=== PATIENT | female | born 1995 | race Caucasian/White ===

== ENCOUNTER 2023-09-23 08:00 | Outpatient (RCR) | payer OTHER, SELFPAY ==
--- NOTE | 2023-09-23 10:05 | BH.NA_ITS ---
Physical Data Vital Signs Pulse Rate: 71 Blood Pressure: 130/85 Height/Weight Height: 1.57 m Weight:: 61.235 kg Weight in Pounds: 135.0 lbs Current Medication Compliance Medication Compliance Do you take your medication as prescribed?: Yes (client has been consistent for the past 3 weeks but has a hx of not) Nutritional History Appetite Nutritional Instructions: Describe your appetite:: Fair Additional nutritional information:: Client states her weight has been as low as 120lbs. Client states she has had some vomiting at times due to anxiety/mental health. Functional Assessment Sleep Pattern Describe any problems with sleeping: Client states she sleeps about 6 hours per night. Sensory/Communication Assess Communication Problems Do you have difficulty understanding what people are saying?: No Medical Problems/History Pain Assessment Do you have acute or chronic pain?: No Surgical History Surgical History Have you had any surgeries? If so, list type and date:: Yes (tonsils, D&C) Substance Abuse Substance Abuse Please describe substance abuse in the last 30 days:: Client states she occasionally uses alcohol socially. Client states she does vape nicotine, lately it has been daily, but she is trying to quit. Client states she occasionally uses marijuana, last about a month ago. Client states she drinks 1 cup of coffee per day and occasionally has pop with caffeine. Mental Status Summary Mental Status Significant Findings/Observations on Appearance and Mood:: Client is alert and oriented x 4. Client is casually groomed with good hygiene. Client is cooperative with assessment. Client makes fair eye contact. Client's voice has normal rate and volume. Client has a somewhat restricted affect. Client makes logical associations and has normal processing, but states her memory is very poor and it makes her a poor historian for recent events. Client denies SI, but does state sometimes she thinks I don't want to wake up tomorrow. Suicide Assessment Suicidal Ideation Are you currently or have you been suicidal in the past?: Yes (passive thoughts of ) Suicidal Intentional Rating Scale (SIRS): Suicidal thoughts (past) Physician Notification Past Psychiatric History MH Treatment Hx Past Psychiatric Medications:: Zoloft Age of first mental health symptoms: Client states she was first on medications for mental health around age 18-21 but has never been consistent with taking her medications. Describe (age, circumstance, etc) any past hospitalizations: None. Current providers for mental health treatment (counselor, psychiatrist, case resource manager, etc.): a psychiatrist in [place] that she is still seeing telehealth Fall Risk Assessment Age Age: Less than 60 Mental Status Mental Status: Willing & able to ask for assistance when needed Physical Status Physical Status: No problems Impairments Impairments: None Elimination Elimination: Continent AND independent Gait or Balance Gait or Balance: Walks independently Hx of Falls History of falls in the past 6 months: No known history Medications/Substances Psychotropics:: Antipsychotics Medications/substances used within the past 24 hours or ordered to administer: 1-2 of the medications/substances listed above Total Score Total Points:: 1 RN Summary of Impressions Impressions Recommendations Impressions: Psychiatric Issues: 1. Bipolar 1 disorder, most recent episode depressed, severe without psychosis (F31.4) 2. Generalized anxiety disorder Level of Care How do the client's current symptoms and functional deficits support need for this level of care?: Client was referred to IOP by her family after recently coming back to [place] from [place] to stay with her parents. Client has been having difficulty with her ADL's, isolating herself, and has been having panic feelings at night. Client states her memory is also very poor right now. Client has a 2 year old daughter that came to [place] with her and client's parents are currently helping her with childcare. Client states she does have thoughts at times I wish I didn't wake up tomorrow but denies suicidal thoughts. Client states she was prescribed Latuda in November of 2022 but has not consistently taken the medication until she came back to [place] a few weeks ago. IOP will promote gains and prevent further decompensation while providing social support and skills training.
--- NOTE | 2023-09-23 10:10 | BH.SGPN.GN ---
Behaviors/Verbalizations/Mental Status: [] Eye contact is poor.. Motor activity is appropriate. Appearance is casual. Speech is Appropriate. Mood is anxious. Affect is congruent. Thoughts are linear and logical. No evidence of psychosis. Client Response/Progress/Benefit: [] Attentive during group discussions. Active participant in experiential activity. Attentive during interactive discussion in which group worked together to define resilience (i.e. continuing to bounce back from hardship; willingness to keep trying) and identify benefits of resilience. Attentive during interactive discussion on if resilience is something we are born with or can learn. Provided appropriate thoughts and feedback. Participated at times during small groups however was quiet and mostly passive as peers identified strategies to build resilience. Benefited from increased awareness of the role of resilience in mental health and ways to build resilience. Will continue in IOP to prevent decompensation, . Narrative Note: []
--- NOTE | 2023-09-23 11:10 | BH.SGPN.GN ---
Behaviors/Verbalizations/Mental Status: []Pt alert and oriented, neatly dressed and groomed. Eye contact good. Motor activity appropriate. Speech within normal limits. Affect congruent, mood anxious and depressed. Thoughts linear, logical, no signs of hallucinations or delusions. Client Response/Progress/Benefit: [] Pt responded well to session AEB completing the resilience worksheet provided. Pt actively participated in the discussion and worked cooperatively with group to identify strategies to enhance each of the components discussed. Pt reports belief they already use resilience traits of making connections and self-awareness. Pt discussed that they could work more on keeping things in perspective and self-care. ?Pt seemed to benefit from discussing strategies for improving personal resilience and identifying resilience traits Pt already possesses. Pt?s first day of IOP tx. Pt reported feeling highly anxious. Will continue IOP tx to prevent decompensation, improve daily functioning, and gain healthy coping skills. ? Narrative Note: []
[2023-09-23 11:32] VITALS: BP 130/85; PULSE 71
--- NOTE | 2023-09-23 12:41 | PCM.BH.PSYEV ---
Psychiatric Evaluation Initial Evaluation Initial Evaluation: History of Present Illness: [] The patient is a 28-year-old female with a history of bipolar 1 disorder and anxiety who was referred to the [facility] behavioral health IOP by the [facility] department and family. The patient states that her symptoms of depression and anxiety worsened in the past year so she moved back to [place] from [place] on September 09, 2023 and is currently living with her father some days and her mother most of the days and always with her 2-year-old daughter. The patient is for the past 6 years to her who is in the and was recently deployed to [place]. They have been having marital issues and she actually from her when her daughter was 4 months old and moved back here and then but then they reconciled and she moved back to [place]. She is currently a [id number] mom since she had her daughter. The patient states that after the of her child daughter she had rapid cycling of her moods from depression to pedro and her family feels she has bipolar disorder. Her father's mother had bipolar disorder and her father sees the same symptoms in her. For primary support she has her mom and dad. Currently she is depressed for the past few months and not able to function well or accomplish her activities of daily living. She is having difficulty taking care of her child to the standard she sets. The patient is not a good historian and hurts states that her memory is poor and says my brain is much. She endorses sadness, hopelessness, worthlessness, apathy, isolation, anhedonia, fluctuation in appetite with weight stable. She is sleeping about 6 hours a night and wakes up during the night. She has low energy, decreased concentration, guilt. She had passive thoughts of 2 weeks ago but denies them since. She denies suicidal ideation, plan for suicide, homicidal ideation, hallucinations or delusions. She has a history maybe a month ago of having an episode of pedro with rapid speech, flight of ideas, increased spending, increased energy and decreased sleep. Most of this history was obtained from her father at the intake and the patient admits to history of pedro but is unclear on when and cannot tell me how often she has these episodes. She is a worrier by nature and has panic attacks the last time being 2 weeks ago. She denies OCD, eating disorder, history of self-harm, trauma or PTSD. Current Psychiatric Medications: [] Lamictal 50 mg p.o. daily (increased recently); Latuda 60 mg p.o. daily with food which she has been on since December 2022 but was not taking it at all consistently or much until the past 3 weeks when her parents have helped her take her meds regularly.; BuSpar 15 mg twice daily; hydroxyzine of unknown dose; trazodone 50 mg p.o. nightly. Past Psychiatric History: [] No psych admits ever. No suicide attempts ever. She has a psychiatrist in [place] for the past 5 months. She was first depressed and anxious in high school. She first took meds for psychiatric reasons at age 21 but does not feel like they helped. Then she took meds again possibly in November 2022 but really was mostly noncompliant with them till the last 3 weeks. She first had counseling off-and-on only in the past year. Substance Use History: [] Vapes nicotine only. Last use marijuana by vaping 1 month ago and was doing it daily for 2 to 3 weeks 1 month ago but stopped doing it. No alcohol use and no drugs and no rehab ever. Allergies: [] No known allergies Medications: [] Psych meds as dictated above and otherwise negative. Past Medical History: [] Denies any medical illnesses. She had a tonsillectomy in the past and a D&C for miscarriage in 2019. She is a 2 para 1 AB 1 female with a 2-year-old daughter and a history of 1 miscarriage. Periods have been irregular since she had her 2-year-old daughter but the last one was normal. She is not on any control. Family Psychiatric History: [] Mother is 54 years old and father is 59 years old. Paternal grandmother had bipolar disorder and was hospitalized for it at times. Father has anxiety. No suicides in the family and no substance issues in the family. Personal/Social History: [] She was born and raised in [facility] and describes her childhood as good. Parents when the patient was 14 years old and she saw her mom mostly inside her dad once or twice a week. Parents are both loving and she denies any verbal, physical or sexual abuse. She has 1 sister 2 years younger and they are close. School was okay for her but she was not a good student really. She was not in special classes. She graduated high school and got a BA in business administration in college. 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 is 25 years old and is in the . They are having some marital issues and when her daughter was 4 months old. She denies any abuse in the marriage. She is currently a mtmg-[id number] mother. And is living now with her mom most days of the week and with her father 2 days a week and always with her 2-year-old daughter since she came here from [place]. Legal History: [] No arrests. 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 No DUIs. Review of Systems: [] Review of systems is negative except as noted in present illness. Vital Signs: [] Vital signs reviewed in the nurses notes and records and updated and the patient is deemed medically able to participate in the IOP. Mental Status Examination: [] The patient is a 28-year-old female who appears normal for stated age and is casually dressed and groomed with good hygiene. She is ambulatory with a normal gait and has no psychomotor agitation or retardation. Eye contact is good and speech is normal rate and rhythm and fluent with no pressure. Mood is depressed and anxious. Affect is constricted. Thought process is goal-directed and organized. Thought content: There is evidence of passive thoughts of recently and evidence of difficulty recalling her history. There is no evidence of current suicidal ideation, plan for suicide, homicidal ideation, hallucinations, delusions or symptoms of pedro. Reality testing is intact. Intelligence is average or above average. Judgment is intact. Insight is limited but some present. Impulsivity is high. Diagnoses: [] 1. Bipolar 1 disorder, most recent episode depressed, severe without psychosis (F31.4) 2. Generalized anxiety disorder 3. Primary support issues Plan: [] The patient will start the IOP at [facility] in behavioral health as the structure, support, education and group therapy will hopefully prevent worsening of the patient's symptoms. She felt safe during the interview and if it anytime she does not feel safe she will let us know or go to the emergency room. The risk, options, possible complications and side effects of the medications were discussed with the patient and she understands and accepts these. No medication changes were made today as the patient only recently 3 weeks ago started taking her medications at all consistently. She will continue to follow-up with outpatient providers and I will see the patient in follow-up in 2 weeks.
--- NOTE | 2023-09-23 12:52 | BH.DR.ITP ---
Initial Treatment Plan Patient Information Visit Information: ADMISSION DATE: EXPECTED LOS: 4-6 weeks Problems/Symptoms Problem #1:: Mood instability Symptom:: Depression, history of pedro, sadness, anhedonia, hopelessness, worthlessness, low energy, decreased concentration, guilt, passive thoughts of recently Problem #2:: Anxiety Symptom:: Worry, rumination, panic attacks
--- NOTE | 2023-09-24 09:00 | BH.SGPN.GN ---
Behaviors/Verbalizations/Mental Status: [Patient was alert and oriented, appropriately dressed and groomed. Eye contact was poor, motor activity normal, unable to gauge speech. Affect congruent, mood content. Thoughts linear, logical, no signs of hallucinations or delusions. Reviewed Patients symptom tracker and the patient reports depressed mood, anxiety/panic attacks, aggravation/irritation/anger, self-harm urges, and risk/thoughts of suicide within patients normal base level.] Client Response/Progress/Benefit: [ Patient declined wanting to participate in group. Patient was respectful and sat quietly and seemingly listened to the other patients wins and stressors. Therapist will check in with the patient to gauge the patients thoughts and mood. If patient does not engage in discussion in the future, this could affect progress in the program. Patient will continue with IOP treatment to help develop healthy skills, promote mood stability, and improve distress tolerance. ] Narrative Note: []
--- NOTE | 2023-09-24 10:05 | BH.SGPN.GN ---
Behaviors/Verbalizations/Mental Status: [Patient was alert and oriented, casually dressed and groomed. Eye contact was good, motor activity normal, speech within normal limits. Affect congruent, mood anxious. Thoughts linear, logical, no signs of hallucinations or delusions. ] Client Response/Progress/Benefit: [Patient did not engage in group but seemingly used active listening and watched the group. Patient did not give a response or input in this group. If patient continues not to participate, this could affect her progress. Patient seemingly benefited from increasing awareness of different perspectives and how they can affect mental health. Patient will continue IOP treatment to improve daily functioning, emotion management, and prevent decompensation.] Narrative Note: []
--- NOTE | 2023-09-24 11:15 | BH.SGPN.GN ---
Behaviors/Verbalizations/Mental Status: []Pt alert and oriented, neatly dressed and groomed. Eye contact good. Motor activity appropriate. Speech within normal limits. Affect constricted, mood fearful. Thoughts linear, logical, no signs of hallucinations or delusions. Client Response/Progress/Benefit: []Pt was attentive and contributed to small group discussion. Pt completed strengths exploration worksheet, identifying kindness, love, empathy, and honesty as personal strengths. Pt able to acknowledge how these strengths are helping pt and can continue to help pt in mental health journey. Pt worked with group to identify strategies that can help increase utilization of personal strengths and how to challenge one?s perspective in general. Pt identified wanting to work on coming to IOP consistently to help challenge perspective. Benefited from identifying personal strengths and strategies for enhancing use of identified strengths. Pt will continue IOP tx to prevent decompensation, improve daily functioning, and gain healthy coping skills. Narrative Note: []
--- NOTE | 2023-09-25 10:15 | BH.SGPN.GN ---
Behaviors/Verbalizations/Mental Status: []Pt alert and oriented, neatly dressed and groomed. Eye contact good. Motor activity appropriate. Speech within normal limits. Affect constricted, mood anxious. Thoughts linear, logical, no signs of hallucinations or delusions. Client Response/Progress/Benefit: [] Pt was a passive participant during group discussion. Attentive during psychoeducation on coping skills, why people use unhealthy coping skills, and how to replace unhealthy coping skills. Group came up with list of negative coping skills including isolating, self-harm, substances, and overworking. Group discussed the effects of how negative coping skills can impact mental health and reinforce negative thinking patterns. Participated in the group activity and did well to connect with peers and give ideas. Pt is highly anxious outside of hands-on activities and does not talk. Benefited from increased understanding of unhealthy coping skills and the need for developing healthy internal and external coping skills. Pt will continue IOP tx to prevent decompensation, improve daily functioning, and gain healthy coping skills. ? Narrative Note: []
--- NOTE | 2023-09-25 11:15 | BH.SGPN.GN ---
Behaviors/Verbalizations/Mental Status: []Pt alert and oriented, casually dressed and groomed. Eye contact good. Motor activity appropriate. Speech within normal limits. Affect constricted, mood anxious. Thoughts linear, logical, no signs of hallucinations or delusions Client Response/Progress/Benefit: [] Pt responded well to session, taking notes and listening to peers. Group discussed the different categories of coping skills which included distraction, emotional release, grounding, self-love, and thought challenging.? Pt participated in creating a coping skills ?menu? from the five categories of coping skills. Pt's coping skill menu included: reading, taking a hot bath, listening to calming music, eating something she enjoys, and reminding herself that thoughts are thoughts not facts. Appeared to benefit from increasing repertoire of healthy coping skills. Will continue IOP tx to prevent decompensation, reduce avoidance and isolation, and improve daily functioning. ? Narrative Note: []
--- NOTE | 2023-09-25 14:10 | BH.MDN_ITS ---
Multi-Disciplinary Note Note 30-min Individual: Time Started:: 09:20 Date: 09/25/23 Purpose of session/treatment goals addressed:: To gather information on pt's current symptoms, stressors, and psychosocial stressors. Another goal was to build rapport and provide emotional support. Eye Contact:: Good Motor Activity:: Restless Appearance:: Neat Speech:: Rapid Mood:: Anxious Affect:: Constricted Thoughts:: Racing Staff Interventions:: mindfulness skills, rapport building, strengths pe rspective and goal setting Client Response:: Pt responded well to session, open to meeting with therapist. Pt stated the program is not going well right now because pt is so overwhelmed and anxious. Pt stated she thinks the program could be helpful eventually, but pt is worried that she is too scattered to get anything out of group. Pt shared the entire time I'm in there I think please don't call on me and it's all I can think about. Pt shared she is highly anxious to the point of panic. Pt was offered several accommodations including having someone take notes for pt and being seen during process group which causes pt the most anxiety. Pt reported that she knows she needs help, but pt does not think this is the right level of care for her. Pt shared her parents are highly encouraging pt to complete IOP and pt feels guilty that they are taking time off work to help her. Pt tried outpatient counseling in the past and shared she has not stayed in it long enough to find benefit. Pt receptive to needing some level of exposure if pt desires a reduction in anxiety symptoms. Pt was told that she will not be called on during group sessions to help pt ease into the structure of IOP and reduce anxiety. Pt willing to give IOP one more week to see if her anxiety can lessen enough so pt can focus in group and benefit from the material. Pt respo nded well to gentle thought challenging by therapist as well as emotional support. Risks/Concerns:: Pt denies any SI or HI. Pt does report that being in group sessions is making her anxiety way worse and ot is not sure if she will be able to complete the full 6 weeks. Progress Toward Goals/Plan:: Pt's first week of IOP tx and pt reports feeling highly anxious. Pt willing to try another week of IOP tx and then decide if the program is right for her. Pt reports that being in group significantly increases her anxiety and pt feels unable to share in group because of this. Pt endorses scattered thoughts, increased hear rate, ruminations, panic, racing thoughts, feeling on edge, and poor appetite. Pt will talk with her parents about how she feels in IOP and pt will attend two days next week. Time Stopped:: 09:48
--- NOTE | 2023-09-25 14:10 | BH.COMM ---
Communication Note Communication with Client Communication Note: Met with pt to complete initial paperwork and administer the CSSR-S screening and risk assessment. Pt is low risk per the CSSR-S screening and risk assessment. No history of suicide attempts or self-harm. Pt reports ability to maintain safety today. Discussed case with Dr. Lara and pt will be admitted to [facility] tx with a diagnosis of bipolar 1 disorder, most recent episode depressed, severe without psychosis (F31.4)
--- NOTE | 2023-09-30 14:24 | BH.DS ---
Discharge Summary Demographics Date of Admission:: 09/23/23 Discharge Date: 09/30/23 Presenting Problems at Admission:: Pt is a 28 year-old female with a history of bipolar I disorder and anxiety who was referred to [facility] due to decompensation of depressive symptoms over the past several months. Pt's symptoms have been impacting pt's ability to complete ADLs and resulted in pt moving back to [place] to be with her parents. Pt experiencing cognitive issues due to severe depression and anxiety. Pt struggling with daily hygiene, taking care of herself and her daughter, and isolation. Pt's symptoms are impacting her overall functioning. Discharge Diagnoses:: Bipolar 1 disorder, most recent episode depressed, severe without psychosis (F31.4); Generalized anxiety disorder Reason for Discharge:: Pt voluntarily discharged from [facility] as pt felt it was not the right level of care for her. Pt has an outpatient therapist and psychiatrist she will follow up with via telehealth. Treatment Progress During Treatment & Response: No progress to document as pt attended group for three days. Issues Still to be Addressed:: Mood instability, depression, difficulty functioning, severe anxiety, avoidance, difficulty concentrating, memory issues, racing thoughts, and martial issues. Discharge Recommendations/Instructions:: Pt was encouraged to try in-person outpatient therapy as pt struggles with severe anxiety and avoidance. Pt will continue with her telehealth providers for now. Discharge Handout
== END 2023-10-01 09:40 | disposition home or self-care (01) ==
LOC: BHIOP 08:00
PROVIDERS: Referring Provider Psychiatry & Neurology Psychiatry; Visit Provider Psychiatry & Neurology Psychiatry
DX: F31.4 Bipolar disorder, current episode depressed, severe, without psychotic features (principal); F41.1 Generalized anxiety disorder
CPT/HCPCS: S9480; 90832; 90853

== ENCOUNTER 2024-01-18 08:00 | Outpatient (RCR) | payer OTHER, SELFPAY ==
--- NOTE | 2024-01-18 11:45 | BH.MDN ---
Multi-Disciplinary Note Note 60-min Individual: Time Started:: 08:50 Date: 01/18/24 Purpose of session/treatment goals addressed:: To gather information on pt's current symptoms, stressors, and psychosocial stressors since last admission. Another goal was to build rapport and provide emotional support. Eye Contact:: Good Motor Activity:: Appropriate Appearance:: Casual Speech:: Appropriate Mood:: Anxious and Depressed Affect:: Congruent Thoughts:: Linear, Logical and No evidence of hallucinations/delusions noted Staff Interventions:: motivational interviewing, psychoeducation on: (maintenance cycles, cognitive triangle), rapport building, strengths perspective, treatment planning and goal setting Client Response:: Pt responded well to session, open to meeting with therapist. Pt stated she feels very nervous about the program and is not confident she is going to benefit from group therapy as she believes ?my symptoms are too severe. I?m too intense?. Reports that feeling overwhelmed and not knowing what to expect resulted in pt not returning to the program after beginning it last September. Therapist provided supportive feedback and discussed the benefits of the shared environment in normalizing pt?s current symptoms and stressors. Pt appeared to connect with this and discussed a desire to give group therapy another try as she does not want to continue to feel the ways she has been. Reviewed adjustments that could be made to ease pt into the group setting, such as not calling on her in groups, having someone else take notes, and being able to step out and take a break as needed until feeling more comfortable. Shared that since her last admission, she has struggled with increasing intrusive thoughts that she will accidentally harm her 2-year-old daughter by not paying enough attention while watching her or missing something and has relied primarily on her parents for caregiving or aiding her in completing caregiving responsibilities the last few weeks. Additionally described intrusive thoughts that she will crash, get into an accident, or hit someone if leaving the house, resulting in pt primarily remaining isolated at home. Reports feeling lost and unsure of who she is since her daughter was born, explaining that she has no idea what she enjoys or would be interested in. Explained difficulties completing basic self-care activities due to lack of motivation and energy, as well as feelings of hopelessness and apathy. Pt disclosed using marijuana to cope in the past but has refrained from doing so since moving back in with her parents. Noted times in which she used excess spending to cope and indicated that in August she had spent upwards of $12,000 on miscellaneous things. Reports her spending as well as pt?s mental health sx have put a strain on her marriage and relationships with her parents. Fears she is going to ruin her relationship with her daughter if she does not improve her mental health while her daughter is still young. Pt noted struggling with limited consistency and significant negative self-talk, especially since returning to [place]. Respective of beginning to incorporate some structure by starting a consistent bedtime. Additional goal to identify 2-3 small accomplishments each day. Risks/Concerns:: Pt denies any SI or HI, plan, or intent. Pt does report ambivalence to living but denies this is suicidal in nature. Pt parents and daughter are protective factors. Progress Toward Goals/Plan:: Pt's first day of IOP tx and pt reports feeling highly anxious. Pt willing to meet with this therapist today and will begin groups later this week as a passive participant and will gradually work on increasing engagement. Pt endorses scattered thoughts, increased intrusive thinking, ruminations, panic, racing thoughts, feeling numb, low motivation, poor hygiene, poor sleep, guilt, apathy, disconnection from others, poor memory, avoidance, and poor appetite. Pt will continue in IOP treatment to improve confidence, promote mood stability, and improve ability to function. Time Stopped:: 09:52
--- NOTE | 2024-01-18 11:47 | BH.PSA_ITS ---
Source of Information Presenting Problems/Circumstances Problems, Referral Source, Mental Status, Client: The patient is a 28-year-old female with history of bipolar 1 disorder and severe anxiety who started the IOP program at [facility] September 23, 2023 but was overwhelmed and discontinued after 2 days. Patient is referred by her parents following an ER visit on 01/11/24 for thoughts of wanting ?to be ?. Pt reports worsening symptoms of anxiety and depression over the last year impac ting her functioning and ability to care give for her daughter who is 2 years old. Psychiatric Presentation Psych Issues & Need for Admission Psychiatric Issues:: panic, anxiety, depression, fleeting SI, codependence Past Psychiatric History MH Treatment Hx Treatment History: Counseling off-and-on for the past year with her counselor in [place]. This has been limited in effectiveness First hospitalization:: No psych admits ever Most recent hospitalization:: denies Medication Trials:: Yes (several with limited effectiveness due to medication noncompliance) ECT Therapy:: No Age of first mental health symptoms: pt reports struggling with mild anxiety much of her life but did not experience depression and anxiety to this extent until age 21. Current providers for mental health treatment (counselor, psychiatrist, case picker, etc.): Dr. Breen psychiatrist, no current outpatient counselor since leaving [place] Development & Family of Origin Childhood Significant Childhood Events: Parents when the patient was 14 years old and had shared custody. Denies any other significant events growing up Family Who currently lives in your home?: Currently staying between parent's homes with her 2 year old daughter as her is [place] Describe family composition:: Pt is the eldest of 2 children with a sister 2 years younger. Her parents have been 14 years. Pt is since 2019 and this is a complicated relationship. They have a 2 year old daughter together. Family History Family Hx of Psychiatric or AOD Problems: Mother is 54 years old and father is 59 years old. Paternal grandmother had bipolar disorder and was hospitalized for it at times. Father has anxiety. No suicides in the family and no substance issues in the family. Ethnicity Culture Do you identify yourself with any particular cultural, ethnic background, or community?: No Sexuality Sexual Orientation: Heterosexual Spirituality Sabianist Do you currently identify with any organized buddhist?: None Beliefs Is there a particular form of support from this community you can use for your recovery?: No Mental Status Memory Recent Memory: Fair Remote Memory: Fair Concentration Concentration: Poor Eye Contact Eye Contact: Stares Speech Speech: Slow and Soft Thought Process Thought Process: Logical and Blocking Insight: Fair Judgment: Fair Orientation Orientation: Time, Person, Place and Situation Appearance Appearance: Appropriate Mood Mood: Anxious and Depressed Affect Affect: Blunted Suicide Assessment Suicidal Ideation Have you ever felt like hurting yourself?: No Please explain:: Does report not wanting to be alive but denies suicidal ideation Were you using ETOH/drugs at the time?: No Physician Notification Violent Behavior/Abuse History Homicidal Ideation Do you have any homicidal thoughts? If so, explain:: No Is there a known potential victim? If yes, who:: No Abuse Have you ever been abused?: No Life Events Are there any other significant life events?: (traumatic miscarriage in 2019 ) Describe significant life events: pt moved to [place] when her joined [employer], pt does not want to live there. Safety Do you ever feel threatened in your home? If yes, describe:: No Adult Social History Age 18 to Present Describe your current support system:: Parents, outpatient psychiatrist, younger sister Substance Use Substance Substance Use Type: Marijuana (last used one month ago), Tobacco (Vapes nicotine only) and Caffeine IV Substance Use Do you have a history of IV use?: denies Leisure/Social Activities Interests What do you enjoy or might be interested in learning about?: Pt is unsure. 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 If yes, describe:: No Court Orders Have you had any past court orders for psychiatric treatment?: No Do you have a present court order for psychiatric treatment?: No Problem Checklist Current Problem Areas Problem List: Depressed mood/sad, Anxiety, Mood swings/hyperactivity and Sleep problems Discharge Planning Needs Anticipated Follow-Up Private Therapist/Psychiatrist:: Dr. Breen Family and Caregiver Contacts:: Mother and father Release of Information Signed:: Yes Car Lubricator's Assessment Client's Needs What are the client's feelings about the program?: Uncertain as pt has extreme anxiety impacting her ability to take in information What are the client's goals?: Reduce anxiety to be able to function at baseline What are the client's strengths?: resilient, intelligent, receptive of support Diagnoses Diagnoses Diagnosis #1:: Bipolar 1 disorder, most recent episode depressed, severe without psychosis Diagnosis #2:: Generalized Anxiety Disorder Interpretive Summary Interpretive Summary Interpretive Summary: The patient is a 28-year-old female with history of bipolar 1 disorder and severe anxiety who started the IOP program at [facility] September 23, 2023 but was overwhelmed and discontinued after 2 days. Patient is referred by her parents following an ER visit on 01/11/24 for thoughts of wanting ?to be ?. Pt reports worsening symptoms of anxiety and depression over the last year impacting her functioning and ability to care give for her daughter who is 2 years old. Pt is living between parent?s homes while her is deployed. Pt reports she cannot be alone due to severe anxiety and intrusive thoughts she will accidently miss something and her daughter will get hurt. She reports extreme worry about her marriage which is struggling and the possibility that should her could want her to go back to [place] where he is stationed and they have a home together. Pt endorses sadness, hopelessness, worthlessness, apathy, isolation, passive thoughts of noting I do not want to be alive but I am too afraid to do it . She denies any plan for suicide and denies suicidal ideation, homicidal ideation, hallucinations or delusions. Hx of bipolar disorder and pedro once in a while which and involves increased energy and grandiose mood along with impulsivity and increased spending of money. Last was about a month ago. She is unclear how often she has these episodes. She is a worrier by nature and has panic attacks on occasion. She denies OCD, eating disorder, history of self-harm, trauma or PTSD. She does have a history of medication noncompliance. Her sx are impacting social, occupational, financial, and caregiving responsibilities. Treatment Plan Recommendations Recommendations Guidelines Recommendations:: The patient will start the IOP at [facility] as the structure, support, education and group therapy will hopefully prevent worsening of the patient's symptoms.
--- NOTE | 2024-01-18 11:47 | BH.MTP_ITS ---
Master Treatment Plan Patient Information Program Physician:: Dr. Agnes Mahmood Primary Therapist:: SHANNAN Garnica Psychiatric Diagnoses Psychiatric Diagnoses:: 1. Bipolar 1 disorder, most recent episode depressed, severe without psychosis (F31.4) 2. Generalized anxiety disorder Diagnosis Code(s):: F31.4 Estimated LOS Estimated LOS (in weeks):: 6 Problem/Goal #1 Problem/Goal #1 Stated Goal:: Client will reduce overall frequency, intensity, and duration of anxiety to improve functioning. Description of Barriers: uncertainty of treatment/being in group setting, severe anxiety impeding ability to concentrate and retain information, anxiety driving which could impede consistent attendance, hx of medication and tx noncompliance Functional Impact: The patient is a 28-year-old female with history of bipolar 1 disorder and severe anxiety who started the IOP program at [facility] September 23, 2023 but was overwhelmed and discontinued after 2 days. Patient is referred by her parents following an ER visit on for thoughts of wanting ?to be ?. Pt reports worsening symptoms of anxiety and depression over the last year impacting her functioning and ability to care give for her daughter who is 2 years old. Pt is living between parent?s homes while her is deployed. Pt reports she cannot be alone due to severe anxiety and intrusive thoughts she will accidently miss something and her daughter will get hurt. She reports extreme worry about her marriage which is struggling and the possibility that should her could want her to go back to [place] where he is stationed and they have a home together. Pt endorses sadness, hopelessness, worthlessness, apathy, isolation, passive thoughts of noting I do not want to be alive but I am too afraid to do it . She denies any plan for suicide and denies suicidal ideation, homicidal ideation, hallucinations or delusions. Hx of bipolar disorder and pedro once in a while which and involves increased energy and grandiose mood along with impulsivity and increased spending of money. Last was about a month ago. She is unclear how often she has these episodes. She is a worrier by nature and has panic attacks on occasion. She denies OCD, eating disorder, history of self-harm, trauma or PTSD. She does have a history of medication noncompliance. Her sx are impacting social, occupational, financial, and caregiving responsibilities. Goal Relevant Strengths/Supports: resilient, strong support system, desire to improve mental health sx Objectives Objective #1: Stated Objective: Pt will identify 2-3 anxiety triggers and 2 coping skills to use when feeling anxious to manage anxiety as shown by reducing DSM-5 scores for anxiety Interventions: Therapist will provide education on anxiety, avoidance behaviors, and maintenance cycles. Therapist will help pt explore personal symptoms and warning signs of anxiety. Therapist will teach pt coping skills to improve emotional regulation, mindfulness, and distress tolerance to help pt cope with anxiety in the moment. Discharge Criteria: Pt will have accomplished this goal when she can identify at least 2 triggers and report using 2 coping skills to manage anxiety. Additionally, pt will have accomplished this goal AEB reduction of DSM-5 scores for anxiety. Target Date: 02/29/24 Review Date: 02/08/24 Objective #2: Stated Objective: Client will reduce avoidance behaviors that reinforce anxiety by setting 1-2 small exposure goals a week to increase socialization, increase mastery, and reduce anxiety over time. Interventions: Therapist will help client create a fear-ladder that will act as a guide in confronting anxiety-producing situations. The fear-ladder will go from least anxiety-producing to most anxiety-producing so client can build confidence. Therapist will help client set SMART goals and challenge barriers. Discharge Criteria: Client will be able to use calming skills to successfully complete at least 2 exposure goals reducing anxiety. Target Date: 02/29/24 Review Date: 02/08/24 Problem/Goal #2 Problem/Goal #2 Stated Goal:: Pt will increase mood stability by reducing hopelessness, passive suicidal ideation, and negative thinking patterns. Description of Barriers: uncertainty of treatment/being in group setting, severe anxiety impeding ability to concentrate and retain information, anxiety driving which could impede consistent attendance, hx of medication and tx noncompliance Functional Impact: The patient is a 28-year-old female with history of bipolar 1 disorder and severe anxiety who started the IOP program at [facility] September 23, 2023 but was overwhelmed and discontinued after 2 days. Patient is referred by her parents following an ER visit on 01/11/24 for thoughts of wanting ?to be ?. Pt reports worsening symptoms of anxiety and depression over the last year impacting her functioning and ability to care give for her daughter who is 2 years old. Pt is living between parent?s homes while her is deployed. Pt reports she cannot be alone due to severe anxiety and intrusive thoughts she will accidently miss something and her daughter will get hurt. She reports extreme worry about her marriage which is struggling and the possibility that should her could want her to go back to [place] where he is stationed and they have a home together. Pt endorses sadness, hopelessness, worthlessness, apathy, isolation, passive thoughts of noting I do not want to be alive but I am too afraid to do it . She denies any plan for suicide and denies suicidal ideation, homicidal ideation, hallucinations or delusions. Hx of bipolar disorder and pedro once in a while which and involves increased energy and grandiose mood along with impulsivity and increased spending of money. Last was about a month ago. She is unclear how often she has these episodes. She is a worrier by nature and has panic attacks on occasion. She denies OCD, eating disorder, history of self-harm, trauma or PTSD. She does have a history of medication noncompliance. Her sx are impacting social, occupational, financial, and caregiving responsibilities. Goal Relevant Strengths/Supports: resilient, strong support system, desire to improve mental health sx Objectives Objective #1: Stated Objective: Pt will learn and utilize 2-3 healthy coping strategies to better manage depressive symptoms and reduce suicidal ideations as shown by a decrease of DMS-5 symptoms for depression. Interventions: Through group and individual sessions, therapist will help pt identify triggers and warning signs of depression including emotional, physical, and behavioral changes. Therapist will teach pt various coping skills to manage symptoms and give pt tangible resources to use to regulate emotions. Therapist will use cognitive restructuring techniques and help pt gain awareness of negative thoughts that reinforce guilt and depression. Therapist will provide psychoeducation on maintenance cycles and help pt learn ways to break unhealthy maintenance cycles. Therapist will help pt incorporate behavioral activation and assist pt in setting SMART goals. Discharge Criteria: Pt will have met this goal when can report learning and using at least 2 coping skills to manage depressive symptoms and reduce isolation. Additionally, pt will have met this goal when pt's DSM-5 scores for depression decrease Target Date: 02/29/24 Review Date: 02/08/24 Objective #2: Stated Objective: Pt will identify at least 2-3 negative self-talk messages used to reinforce negative core beliefs, worthlessness, and isolation and replace thoughts with balanced, realistic messages. Interventions: Therapist will help pt identify distorted, negative beliefs about self and replace with more realistic, affirmative messages. Therapist will use CBT and DBT to help pt increase insight to the connection between thoughts, emotions, and behaviors. Therapist will encourage pt to practice thought challenging. Discharge Criteria: Pt will have achieved this goal when can verbalize at least 2 cognitive distortions and effectively replace those thoughts with affirmative messages. Target Date: 02/29/24 Review Date: 02/08/24
--- NOTE | 2024-01-20 08:45 | BH.NA ---
Physical Data Vital Signs Pulse Rate: 81 Blood Pressure: 128/88 Height/Weight Height: 1.57 m Weight:: 61.235 kg Weight in Pounds: 135.0 lbs Current Medication Compliance Medication Compliance Do you take your medication as prescribed?: Yes Nutritional History Appetite Nutritional Instructions: Describe your appetite:: Poor Additional nutritional information:: Client states she does not have an appetite, and is not even drinking very many fluids- client states her mom has to force her to drink. Functional Assessment Sleep Pattern Describe any problems with sleeping: Client states she is sleeping about 4-6 hours per night. Sensory/Communication Assess Communication Problems Do you have difficulty understanding what people are saying?: No Medical Problems/History Pain Assessment Do you have acute or chronic pain?: No Surgical History Surgical History Have you had any surgeries? If so, list type and date:: Yes (tonsillectomy, D&C) Substance Abuse Substance Abuse Please describe substance abuse in the last 30 days:: Client denies alcohol use. Client vapes nicotine daily. Client states she occasionally uses marijuana, and last used a couple of weeks ago. Client states she drinks 1-3 caffeinated beverages per day (coffee, tea, pop). Mental Status Summary Mental Status Significant Findings/Observations on Appearance and Mood:: Client is alert and oriented x 4. Client is casually groomed. Client is very quiet, but cooperative with assessment. Client makes fair eye contact. Client's voice is soft with normal rate. Client appears depressed, with a flat affect. Client makes logical associations, but answers questions very vaguely. Client denies delusions/hallucinations. Client reports some passive SI, denies plan/intent. Suicide Assessment Suicidal Ideation Are you currently or have you been suicidal in the past?: Yes Suicidal Intentional Rating Scale (SIRS): Suicidal thoughts (past) (passive thoughts of , no plan/intent) Physician Notification Past Psychiatric History MH Treatment Hx Past Psychiatric Medications:: past- Lamictal, Zoloft, Buspar, hydroxyzine Age of first mental health symptoms: Client was first depressed in high school, and took medications for mental health around age 21. Describe (age, circumstance, etc) any past hospitalizations: None. Current providers for mental health treatment (counselor, psychiatrist, social work case manager, etc.): a virtual therapist, Dr. Fuentes in [place] for psychiatry Fall Risk Assessment Age Age: Less than 60 Mental Status Mental Status: Willing & able to ask for assistance when needed Physical Status Physical Status: No problems Impairments Impairments: None Elimination Elimination: Continent AND independent Gait or Balance Gait or Balance: Walks independently Hx of Falls History of falls in the past 6 months: No known history Medications/Substances Psychotropics:: Antidepressants and Antipsychotics Medications/substances used within the past 24 hours or ordered to administer: 1-2 of the medications/substances listed above Total Score Total Points:: 1 RN Summary of Impressions Impressions Recommendations Impressions: Psychiatric Issues: 1. Bipolar 1 disorder, most recent episode depressed, severe without psychosis (F31.4) 2. Generalized anxiety disorder Level of Care How do the client's current symptoms and functional deficits support need for this level of care?: Client was in IOP for a couple of days in September 2023, and has returned at this time after an ER visit on 01/11/24 for decreased functioning. Client is currently staying with her parents and her 2 year old child, and client is very dependent on parents due to her mental health (follows her mom around the house, per client her mom has to force her to drink fluids, decrease in ADL's with her mom helping her take care of her child). Client had been living in [place] until August 2023 when she came to [place] to stay with her parents. Client has had some cycling moods since then, some pedro with excessive spending and then depression with passive thoughts of . IOP will promote gains and prevent further decompensation while providing social support and skills training.
[2024-01-20 09:31] VITALS: BP 128/88; PULSE 81
--- NOTE | 2024-01-20 13:05 | BH.PSY.EVA_ITS ---
Psychiatric Evaluation Initial Evaluation Initial Evaluation: History of Present Illness: [] The patient is a 28-year-old female with history of bipolar 1 disorder and severe anxiety who started the IOP program at [facility] September 23, 2023 but was overwhelmed and unable to tolerate it was only here for 2 days. Patient is referred back by her parents now due to worsening symptoms of anxiety and depression. Her parents brought her to the emergency room on January 11, 2024 because she wanted to be and was unable to be alone and followed her mother around the house. The parents stated that she cannot be left alone. She has extreme worry about her marriage and the possibility that should her could want her to go back to [place]. She is afraid to be alone with her daughter because she feels she will be unable to watch her close enough due to her depression symptoms. The patient has been was for 5 years until October 2022 when her and her who is in the . They then remarried in March 2023. The patient states that her biggest stress is I do not want to go back to [place] . Patient is a [id number] mom and is currently living with her parents. The patient states that after the of her daughter she had rapid cycling of her mood from depression to pedro and her paternal grandmother has bipolar disorder in her father and other others feel she also has bipolar disorder. She has been depressed, sadness, hopelessness, worthlessness, apathy, isolation, passive thoughts of . She states I do not want to be alive but I am too afraid to do it . She denies any plan for suicide and denies suicidal ideation, homicidal ideation, hallucinations or delusions. She feels that she gets pedro once in a while which and involves increased energy and grandiose mood along with impulsivity and increased spending of money and she is at times spent thousands of dollars. Last time this happened was about a month ago. She is unclear how often she has these episodes. She is a worrier by nature and has panic attacks on occasion. She denies OCD, eating disorder, history of self- harm, trauma or PTSD. She does have a history of medication noncompliance. Her is in the and was stationed abroad but is coming home soon and he says that the patient is lazy and the does not believe in any mental health issues so was not supportive of the patient. Current Psychiatric Medications: [] Latuda 60 mg p.o. daily with food; Trintellix 10 mg p.o. daily (added 1 week ago); trazodone 50 mg p.o. nightly Past Psychiatric History: [] No psych admits ever. No suicide attempts ever. She has a new psychiatrist that she saw last week for the first time. She was first depressed and anxious in high school. She took meds at the first for at age 21 and then in November 2022 but was mostly noncompliant with them until September 2023. Substance Use History: [] Vapes nicotine only. Occasional marijuana. No alcohol or drugs and no rehab ever. Allergies: [] No known allergies. Medications: [] Psych meds only. Past Medical History: [] No medical issues. Tonsillectomy and a D&C for miscarriage in 2018. 2 para 1 AB 1 female with a 3-year-old daughter. Not on control. Family Psychiatric History: [] Mother is 55 years old and father 60 years old. Paternal grandmother had bipolar disorder and was hospitalized at times. Father has anxiety. No suicides in the family and no substance issues in the family. Personal/Social History: [] Patient was born and raised in [place] [facility] and describes her childhood as good . Parents when the patient was 14 years out and saw her mom mostly in her dad several times a week. Parents are both loving and she denies any verbal, physical or sexual abuse. She has 1 sister 2 years younger and they are close. She was not a very good student but was not in special classes. She graduated high school and got a BA in business administration in college. 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 is 27 or 28 years old and is in the and they have been having significant marital issues and for the first time when her daughter was 4 months old. Patient denies abuse in the marriage but the does not believe in mental health symptoms and is not supportive of her and calls her lazy. She is living with her mother now and father on occasion and her 3-year-old daughter since she came here from [place]. Legal History: [] No arrests. Has equipment driver's license. No DUIs. Review of Systems: [] Negative except as noted in present illness. Vital Signs: [] Vital signs reviewed in nurses notes and updated and the patient is deemed medically able to participate in the IOP. Mental Status Examination: [] Patient is a 28-year-old female who appears normal for stated age and is casually dressed and groomed with good hygiene. She is ambulatory with a normal gait and has no psychomotor agitation or retardation. Eye contact is overall good but the patient stares without blinking at times because she says she is afraid that she will not remember enough . Speech is normal rate and rhythm and fluent with no pressure. Speech is quiet in volume. Mood is depressed and anxious. Affect is constricted. Thought process is goal-directed and organized. Thought content: There is evidence of passive thoughts of . There is evidence of fear of being alone and fear of having to go back to [place] with her . There is no evidence of suicidal ideation, plan for suicide, homicidal ideation, hallucinations, delusions or symptoms of pedro. Reality testing is intact. Intelligence is average or above average. Judgment is intact. Insight is limited but some present. Impulsivity is high. Diagnoses: [] 1. Bipolar 1 disorder, most recent episode depressed, severe without psychosis (F31.4) 2. Generalized anxiety disorder 3. Primary support issues Plan: [] The patient will start the IOP at [facility] as the structure, support, education and group therapy will hopefully prevent worsening of the patient's symptoms. She felt safe during the interview and if it anytime she does not feel safe she will let us know or go to the emergency room. Patient requested not to have a PA student in the room so she was seen with her therapist at the IOP. We will slowly introduce the patient to the groups in the hopes that she will be able to tolerate them. No medication changes were made today as she had them changed 1 week ago. She will continue to follow-up with her outpatient providers and I will see the patient in follow-up in 2 weeks.
--- NOTE | 2024-01-20 13:14 | BH.DR.ITP ---
Initial Treatment Plan Patient Information Visit Information: ADMISSION DATE: EXPECTED LOS: 4-6 weeks Problems/Symptoms Problem #1:: Anxiety Symptom:: Worry, rumination, nausea, biological disruption of appetite, avoidance Problem #2:: Depression Symptom:: Sadness, hopelessness, worthlessness, passive thoughts of , decreased concentration, guilt
--- NOTE | 2024-01-21 09:02 | BH.SGPN.GN ---
Behaviors/Verbalizations/Mental Status: [] Eye contact fair to good. Motor activity appropriate. Speech within normal limits, soft. Affect constricted, mood depressed and anxious. Thoughts linear, logical, no signs of hallucinations or delusions. Reviewed client?s symptom tracker, SI within pt identified baseline, denies plan or intent as of this date 01/21/24. Client Response/Progress/Benefit: [] Client receptive of session, attentive and willing to process with group despite reporting severe social anxiety. Identified mental health ?wins? as challenging herself to use opposite action and come to group today. Noted that she has been worried about the group environment but is hoping it will help improve mental health sx. Went on to discuss extreme anxiety driving which was a stressor this morning, but she was able to get here and recognize that as a win. Client appeared to benefit from group support and encouragement. Recommended continued IOP tx to improve mood stability, continue to improve comfort in group setting, promote skill application, and prevent decompensation. Narrative Note: []
--- NOTE | 2024-01-21 10:15 | BH.SGPN.GN ---
Behaviors/Verbalizations/Mental Status: []Pt alert and oriented, neatly dressed and groomed. Eye contact good. Motor activity appropriate. Speech within normal limits. Affect constricted, mood anxious. Thoughts linear, logical, no signs of hallucinations or delusions. Client Response/Progress/Benefit: []Pt an active participant throughout. Participated during interactive discussion on defining conflict (internal/external) and possible benefits to conflict. Attentive during psychoeducation on conflict styles and engaged during small group activity in which peers identified the benefits and consequences to each conflict style. Pt identified their primary conflict style as competing type. PT stated this style impacts her mental health and relationships because ?I usually do what I want which I know isn?t the best for those around me.? Benefited from increased awareness of the impact of conflict styles in mental health. Will continue IOP tx to prevent decompensation, increase the use of healthy coping skills, and improve daily functioning. Narrative Note: []
--- NOTE | 2024-01-21 11:10 | BH.SGPN.GN ---
Behaviors/Verbalizations/Mental Status: [] Eye contact is good. Motor activity is appropriate. Appearance is casual. Speech is Appropriate. Mood is anxious. Affect is congruent. Thoughts are linear and logical. No evidence of psychosis. Client Response/Progress/Benefit: [] Pt did not participate in group discussions however was active and engaged during group activity. Attentive during psychoeducation on the benefits and drawback of each conflict style. Along with peers was able to reflect on what conflict resolution skills can be useful outside of IOP. Pt chose to continue to work on the conflict resolution skill of not yelling stating that when communicating to others she tends to get irritable and lash out. Benefited from practicing and learning conflict resolution skills during group activity. Able to relate activity back to group topic. Will continue in IOP to maintain safety, prevent decompensation, improve functioning, and increase healthy coping skills. More engaged in group and with peers than yesterday. Narrative Note: [] Behaviors/Verbalizations/Mental Status: [] Eye contact is good. Motor activity is appropriate. Appearance is casual. Speech is Appropriate. Mood is anxious. Affect is congruent. Thoughts are linear and logical. No evidence of psychosis. Client Response/Progress/Benefit: [] Pt did not participate in group discussions however was active and engaged during group activity. Attentive during psychoeducation on the benefits and drawback of each conflict style. Along with peers was able to reflect on what conflict resolution skills can be useful outside of IOP. Pt chose to continue to work on the conflict resolution skill of not yelling stating that when communicating to others she tends to get irritable and lash out. Benefited from practicing and learning conflict resolution skills during group activity. Able to relate activity back to group topic. Will continue in IOP to maintain safety, prevent decompensation, improve functioning, and increase healthy coping skills. More engaged in group and with peers than yesterday. Narrative Note: []
== END 2024-01-21 23:59 ==
LOC: BHIOP 08:00
PROVIDERS: Referring Provider Psychiatry & Neurology Psychiatry; Visit Provider Psychiatry & Neurology Psychiatry
DX: F31.4 Bipolar disorder, current episode depressed, severe, without psychotic features (principal); F41.1 Generalized anxiety disorder
CPT/HCPCS: S9480; 90837; 90853

== ENCOUNTER 2024-01-22 06:59 | Outpatient (RCR) | payer OTHER, SELFPAY ==
[2024-01-22 00:42] VITALS: BP 128/88; PULSE 81
--- NOTE | 2024-01-25 10:00 | BH.MDN ---
Multi-Disciplinary Note Note 45-min Individual: Time Started:: 09:13 Date: 01/25/24 Purpose of session/treatment goals addressed:: The purpose of this session was to address treatment plan goal #1 obj #1 & #2. Eye Contact:: Good Motor Activity:: Restless Appearance:: Casual Speech:: Appropriate Mood:: Anxious and Depressed Affect:: Congruent Thoughts:: Linear, Logical, Racing and No evidence of hallucinations/delusions noted Staff Interventions:: motivational interviewing, psychoeducation on: (anxiety maintenance cycles and exposure therapy), mindfulness skills, rapport building, strengths perspective and goal setting Client Response:: Client responded well to session, open to meeting with therapist. Client stated that due to childcare limitations she is unable to stay after group for individual session and was open to meeting during the process group session. Reports continuing to struggle with retaining information in the group setting and worries she will not make progress as a result. Therapist validated pt?s concerns and discussed the impacts of anxiety on memory and retention. Reviewed the importance of attending group sessions to increase comfort and reduce anxiety through exposure, which in turn will improve information retention. Shared struggling with ?non-stop? worry and racing thoughts regarding her relationship, living situation, and caregiving responsibilities. Pt noted that she is overwhelmed by the decisions she needs to make and feels hopeless and incapable of problem-solving her current stressors as a result. Described her racing thoughts have caused difficulties sleeping and being present when completing activities or interacting with her daughter. Reports fear she will lose custody of her daughter because she feels that she cannot successfully manage any responsibilities on her own. Did well to work with therapist on identifying activities she is successfully completing independently, such as bathing and putting her daughter to bed, driving to [employer] group daily, and purchasing diapers and other necessary items for her daughter. Client receptive of working with therapist to write down and prioritize by date and importance the current stressors she has been ruminating on. Identified one stressor to focus on addressing this week before moving on to others. Stressor noted as clarifying questions she has about her insurance. Went on to discuss strategies for building confidence in her caregiving abilities. Identified importance of beginning to allow herself to spend more time with her daughter alone to challenge intrusive thoughts related to her daughter?s safety. Created a goal to spend 30-60 minutes a day independently playing with her daughter. Risks/Concerns:: Client denies any suicidal ideations, plan, or intent as of 01/25/24. Client is future oriented and her daughter is a protective factor. Progress Toward Goals/Plan:: Limited progress noted. Pt has been more attentive and able to engage in small group discussions as well as improved ability to take notes and appears to be retaining more information than last week. Pt was able to be more present throughout individual session and reports beginning her accomplishment log as discussed in prior session. Pt does report needing her mother to encourage her to complete this task daily. Continues to struggle with overwhelming anxiety and rumination impeding her ability to think logically, reducing ability to be present throughout interactions which continues to impede pt capability of retaining information. Continues to report hopelessness, intrusive thoughts, anhedonia, low motivation, codependency on parents, low self-esteem, and racing thoughts. Recommended continued IOP tx to improve anxiety management, reduce hopelessness, and prevent decompensation. Time Stopped:: 10:00
--- NOTE | 2024-01-25 10:15 | BH.SGPN.GN ---
Behaviors/Verbalizations/Mental Status: []Patient was alert and oriented, casually dressed and groomed. Eye contact was good, motor activity normal, speech within normal limits. Affect congruent, mood anxious. Thoughts linear, logical, no signs of hallucinations or delusion Client Response/Progress/Benefit: []Pt participated in the group discussions AEB providing input and taking notes. Attentive during psychoeducation Goal Setting. Participated during the discussion on common barriers lack of motivation, making excuses, not feeling good enough, and lack of support. Group also identified benefits sense of purpose, improved self-confidence, more motivation for other goals, and improved mental health. Pt reports struggling specifically with barriers of not writing down her goals and then forgetting them. Benefited from increased awareness of mental health benefits of goals as well as psychoeducation on SMART goal criteria. Will continue in IOP to prevent decompensation, improve daily functioning, and increase ability to manage anxiety. Narrative Note: []
--- NOTE | 2024-01-25 11:10 | BH.SGPN.GN ---
Behaviors/Verbalizations/Mental Status: []Pt alert and oriented, casually dressed and groomed. Eye contact good. Motor activity appropriate. Speech within normal limits. Affect constricted, mood depressed, anxious. Thoughts linear, logical, no signs of hallucinations or delusions. Client Response/Progress/Benefit: [] Pt was engaged during discussion and willing to complete the worksheet challenging them to develop a personal SMART goal. Pt chose the goal of attending scheduled IOP sessions each day for the week. Pt stated this will improve her overall mental health and reduce anxiety. Pt identified driving anxiety, low motivation, and hopelessness next to her alarm as barriers. Identified solutions such as lowering her expectations, positive affirmations, and using opposite action. Pt receptive to identifying solutions for these barriers and willing to begin working on this goal. Benefited from this group by developing a short-term SMART goal related to mental health. Will continue IOP tx to prevent decompensation, improve perspective and daily functioning, and gain healthy coping skills. Narrative Note: []
--- NOTE | 2024-01-27 09:00 | BH.SGPN.GN ---
Behaviors/Verbalizations/Mental Status: [Patient was alert and oriented, appropriately dressed and groomed. Eye contact was good, motor activity normal, speech within normal limits but quiet. Affect congruent, mood anxious. Thoughts linear, logical, no signs of hallucinations or delusions. Reviewed Patients symptom tracker and the patient reports depressed mood, anxiety/panic attacks, agitation/irritability/anger, self-harm urges, and thoughts/risk of suicide within normal limits.] Client Response/Progress/Benefit: [ Patient was engaged and open to the discussion. Patient reported her mood to be ?anxious?. Patients first win is that she drove an hour to group today although she ?hates to drive?. She shared that her GPS took her a new way which made her more anxious. Patients second win is that she spent 5-6 hours alone with her daughter without calling her mom. Patient said she normally calls her mom ?20 times or more? when shes alone in general. Patients stressor is that she isn?t sure if she is going to move back to [place] with her or not. Patient was interactive and respectful with other group members about their mental wins and stressors. Patient benefited from the discussion by listening to feedback and giving input on her peer?s stressors and mental health wins. Patient will continue with IOP treatment to help develop healthy skills, promote mood stability, and improve distress tolerance.] Narrative Note: []
--- NOTE | 2024-01-27 10:15 | BH.SGPN.GN ---
Behaviors/Verbalizations/Mental Status: [] Eye contact is good. Motor activity is appropriate. Appearance is casual. Speech is Appropriate. Mood is anxious. Affect is congruent. Thoughts are linear and logical. No evidence of psychosis. Client Response/Progress/Benefit: [] Pt did not participate during group discussions, however did participate in group activities. This portion of group was very psychoeducation heavy and pt was attentive during psychoeducation. Engaged during activity in which they identified which type of foods (i.e. carbs, sugar, salt, fast food, caffeine, etc) they seek out when sad, tired, angry, rushed, anxious, etc. Pt was able to identify the impact that certain foods have on their mental health through group example which was beneficial. Benefited from increased awareness of the connection between nutrition and mental health. Will continue in IOP to prevent decompensation/ re-admission to psychiatric unit, stabilize mood, improve functioing, and increase healthy coping skills. Narrative Note: []
--- NOTE | 2024-01-27 11:15 | BH.SGPN.GN ---
= Behaviors/Verbalizations/Mental Status: []Pt alert and oriented, casually dressed and groomed. Eye contact good. Motor activity appropriate. Speech within normal limits. Affect constricted, mood anxious, depressed. Thoughts linear, logical, no signs of hallucinations or delusions. Client Response/Progress/Benefit: [] Pt was an active participant throughout AEB contributing to group discussion and taking notes. Pt provided input during small group discussion on strategies to combat each factor maintaining adverse nutritional cycles. Worked with group to identify ways to foster more mindful nutritional choices. Each group participant identified one small step they could take today to begin establishing mental wellness promoting nutritional choices. Pt shared plans to?begin assisting in meal prep/cooking. Appeared to benefit from gaining insight into mental wellness centered nutrition and identifying personal steps Pt can take to support own nutritional psychology. Recommended continued IOP tx to promote self-care, increase thought challenging, promote mood stability, and combat distortions. ? Narrative Note: []
--- NOTE | 2024-01-28 09:00 | BH.SGPN.GN ---
Behaviors/Verbalizations/Mental Status: [] Eye contact is good. Motor activity is appropriate. Appearance is casual. Speech is Appropriate. Mood is anxious. Affect is congruent. Thoughts are linear and logical. No evidence of psychosis. Reviewed daily check in sheet and pt reports 2/5 for suicidal thoughts and 0/5 for intent. This is decrease from last week's and early this week's scores. Client Response/Progress/Benefit: [] Pt participated when prompted. Attentive. Daily symptom tracker notes 4/5 for irritability and 3/5 for depression/anxiety. Pt's check in was minimal. She continues to report significant anxiety and depression which impact her functioning. Fearful of her future due to her mental health. Anxiety is making daily decisions difficult due to worrying about everything. Worry causes her to make no decisions and feel powerless and stuck. She was able to identify a couple mental health wins noting decreased depression and increased confidence in being alone. Benefited from group support, encouragement, and feedback. Will continue in IOP to maintain safety, prevent decompensation, and improve functioning. Narrative Note: []
--- NOTE | 2024-01-28 10:15 | BH.SGPN.GN ---
Behaviors/Verbalizations/Mental Status: []Client alert and oriented, casually dressed and groomed. Eye contact good. Motor activity appropriate. Speech within normal limits. Affect congruent, mood anxious and depressed. Thoughts linear, logical, no signs of hallucinations or delusions. Client Response/Progress/Benefit: []Pt engaged in session AEB listening attentively to others and providing input throughout group discussion which is significant progress. Pt engaged in activity, able to connect how it can be uncomfortable and difficult to accept when things are out of one?s own control. Pt worked with group to identify what things in life can be hard to accept. Group identified things hard to accept as: disability, caregiving responsibilities, loss of relationship, mental health diagnosis, other?s behaviors, and past decisions. Pt identified struggling to accept that she needs to improve her ability to be alone. Seemed to benefit from increased awareness of importance of acceptance. Pt to continue IOP tx to further improve mood stability, continue to promote application of grounding and exposure skills, and prevent decompensation. Narrative Note: []
--- NOTE | 2024-01-28 11:10 | BH.SGPN.GN ---
Behaviors/Verbalizations/Mental Status: []Pt alert and oriented, neatly dressed and groomed. Eye contact good. Motor activity appropriate. Speech within normal limits. Affect congruent, mood anxious. Thoughts linear, logical, no signs of hallucinations or delusions. Client Response/Progress/Benefit: []Pt responded well to session AEB taking notes and contributing to discussion throughout. Pt engaged as group continued discussion on acceptance and the mental health benefits of practicing acceptance. Pt and peers identified what makes acceptance challenging and pt completed a self-reflection exercise on what is hard to accept in pt's life. Pt identified struggling to accept ?not being where I want to be in life.? Group identified strategies to increase acceptance and pt shared wanting to focus on recognizing when she is being willful and trying to change that. Pt appeared to benefit from gaining insight and learning strategies to increase acceptance. Pt will continue IOP tx to prevent decompensation, monitor medications, and gain healthy coping skills. ? Narrative Note: []
--- NOTE | 2024-02-02 09:05 | BH.SGPN.GN ---
Behaviors/Verbalizations/Mental Status: [] Eye contact good. Motor activity appropriate. Speech within normal limits. Affect congruent, mood anxious and depressed. Thoughts linear, logical, no signs of hallucinations or delusions. Reviewed client?s symptom tracker, denies SI, plan, or intent as of 02/02/2024. Client Response/Progress/Benefit: [] Client was receptive of session, attentive and willing to process with group. Identified mental health ?wins? as spending time alone with her daughter and not needing to contact her mother right away for reassurance. Additional win noted as making it to group this morning as she has anxiety about driving. Shared doing well to focus on driving and not her thoughts. Reports current stressor as ongoing difficulties in making a decision about her marriage. Client appeared to benefit from group support and encouragement, connected with a fellow participant who discussed recently leaving a toxic relationship. Recommended continued IOP tx to continue to improve mood stability and engagement, promote consistent skill application, and prevent decompensation. Narrative Note: []
--- NOTE | 2024-02-02 09:39 | BH.MDN ---
Multi-Disciplinary Note Note 30-min Individual: Time Started:: 10:33 Date: 02/02/24 Purpose of session/treatment goals addressed:: Purpose of session is to address treatment plan goals #1 & #2. Eye Contact:: Good (tearful) Motor Activity:: Appropriate Appearance:: Casual Speech:: Pressured and Soft Mood:: Anxious and Depressed Affect:: Congruent Thoughts:: Linear, Logical, Racing and No evidence of hallucinations/delusions noted Staff Interventions:: motivational interviewing, psychoeducation on: (maintenance cycles and exposure therapy), CBT techniques, mindfulness skills, rapport building, strengths perspective and goal setting Client Response:: Client receptive of session, actively engaged throughout and openly discussing current symptoms and stressors. Reports frustration with herself as she did not journal the past three nights. Indicates that she did not forget, she just did not have the motivation to. Continues to struggle with excess sleep during the day and reports difficulties finding positives or reasons to smile. Client noted that she feels helpless and hopeless, indicating beliefs her mental health will never improve. Client describes constant negative self-talk and overwhelming guilt about living in [place] while her is stationed in [place]. Able to identify the benefits of moving back home temporarily as she has more support here and can focus on her mental health while receiving additional childcare assistance. Reports struggling with not wanting to spend time with her daughter, as she does not want to do anything. Additionally, fears that her depression and anxiety are limiting her ability to effectively supervise her daughter. These overwhelming thoughts that something bad will happen while under her watch have prevented pt from spending time independently with her daughter. Client reports she struggles with making simple decisions regarding daily life, providing an example of needing to ask her mother when to shower. Pt receptive of discussion on anxiety maintenance cycles, safety behaviors, and the importance of exposure in reducing anxiety long-term. Client connected with this and identified a goal of spending more time independently with her daughter, as well as challenging herself not to engage in reassurance seeking behaviors when attempting to complete tasks around the house. Risks/Concerns:: Client denies any suicidal ideations, plan, or intent as of 02/02/24. Client is future oriented and her daughter is a protective factor. Progress Toward Goals/Plan:: Progress limited. Pt continues to report significant difficulties completing daily tasks. Attributes this to low motivation, apathy, anxiety, and negative self-talk. Pt's overwhelming racing thoughts about her future and fears of not improving are impeding her ability to focus on the present and complete small behavior activation goals. Pt would benefit from beginning to work on small exposure goals, as well as thought challenging and self-compassion. Recommended continued IOP tx to prevent decompensation, improve self-confidence, and continue to promote mood stability. Time Stopped:: 11:02
--- NOTE | 2024-02-02 11:15 | BH.SGPN.GN ---
Behaviors/Verbalizations/Mental Status: []Pt alert and oriented, neatly dressed and groomed. Eye contact good. Motor activity appropriate. Speech within normal limits. Affect congruent, mood anxious. Thoughts linear, logical, no signs of hallucinations or delusions. Client Response/Progress/Benefit: [] Pt responded well to session AEB Pt listening attentively to others and providing input during group discussion on the pay offs and costs of the different communication styles. Pt able to connect how current communication style impacts mental health. Connected with peers comments about importance of using assertive communication. Pt did well being assertive in the group activity and practiced using assertive communication in the role playing scenarios. Pt has a hard time with voicing her thoughts and did well to practice opposite action to get clarification in group. Pt seemed to benefit from increasing awareness of healthy strategies to improve communication. Will continue IOP tx to prevent decompensation, improve daily functioning, and increase emotional regulation skills. ? Narrative Note: []
--- NOTE | 2024-02-04 09:00 | BH.SGPN.GN ---
Behaviors/Verbalizations/Mental Status: [] Eye contact is good. Motor activity is appropriate. Appearance is casual. Speech is Appropriate. Mood is anxious. Affect is congruent. Thoughts are linear and logical. No evidence of psychosis. Reviewed daily check in sheet and no reports of suicidal ideations or intent. Client Response/Progress/Benefit: [] Pt participated at times during the group discussions. Attentive. Daily symptom tracker notes 01/25 for anxiety, depression, and irritability. Able to identify mental health wins and healthy habits which included ? getting here today? and spending more alone time with her daughter. ? I spent most of the day with her?. Shared how her depression and anxiety has impacted time spent with and caring for her daughter. Emotion for today is ? anxious?. She continues to ruminate on the status of her marriage and whether she is going to move back to [place]. Progress noted per pt report. Will continue in IOP to prevent decompensation, stabilize mood, and improve functioning. Narrative Note: []
--- NOTE | 2024-02-04 10:10 | BH.SGPN.GN ---
Behaviors/Verbalizations/Mental Status: []Pt alert and oriented, appropriate grooming/appearance. Eye contact fiar. Motor activity appropriate. Speech within normal limits. Affect congruent, mood anxious. Thoughts linear, logical, no signs of hallucinations or delusions. Client Response/Progress/Benefit: []Pt was an active participant in group discussions. Attentive during psychoeducation. Contributed during interactive discussions in which peers attempted to define crisis. Pt identified examples of potential crisis. Group also worked together to identify unhealthy responses to crisis which included; isolation, self-harm, substance abuse, avoidance, and distraction. Pt identified personal warning signs as increased negative thinking, difficulty concentrating, and not taking care of responsibilities. Benefited from increased understanding of crisis and awareness of personal responses to crisis. Pt will continue IOP tx to reduce anxious avoidance behavior, increase healthy coping, and prevent decompensation.
--- NOTE | 2024-02-04 11:10 | BH.SGPN.GN ---
Behaviors/Verbalizations/Mental Status: []Eye contact is good. Motor activity is appropriate. Appearance is casual. Speech is Appropriate. Mood is anxious. Affect is constricted. Thoughts are linear and logical. No evidence of psychosis. Client Response/Progress/Benefit: [] Pt was an active participant in group discussions. Attentive during psychoeducation. In small group pt along with peers developed an active plan for their crisis warning signs. Pt identified three crisis warning signs as well as an action plan for each. One crisis warning sign was increased negative thinking. Pt identified coping skills to help with this such as: using distractions and writing things in her accomplishment log. Benefited from increased awareness of crisis warning signs and by developing crisis intervention strategies. Will continue in IOP to prevent decompensation, increase distress tolerance, and improve self-confidence. ? Narrative Note: []
--- NOTE | 2024-02-05 10:05 | BH.SGPN.GN ---
Behaviors/Verbalizations/Mental Status: [] Eye contact is good. Motor activity is appropriate. Appearance is casual. Speech is Appropriate. Mood is anxious. Affect is congruent. Thoughts are linear and logical. No evidence of psychosis. Client Response/Progress/Benefit: [] Pt was an active participant in activity and taking notes during group discussion. Attentive during psychoeducation and interactive discussion on coping skills, why people use unhealthy coping skills, how to replace unhealthy coping skills, and internal vs external coping skills. Group came up with list of negative coping skills including not asking for help, avoidance, isolating, sleeping, shopping, substance use, and several others. Group discussed the effects of how negative coping skills can impact mental health in a negative way. Participated during experiential activity and was able to related the activity to group topic regarding the benefits of developing strong internal and external support system. Benefited from increased understanding of unhealthy coping skills and the need for developing healthy internal and external coping skills. Will continue in IOP to prevent decompensation, increase independent coping skills, and improve daily functioning. Narrative Note: []
--- NOTE | 2024-02-05 11:18 | BH.SGPN.GN ---
Behaviors/Verbalizations/Mental Status: []Pt alert and oriented, casually dressed and groomed. Eye contact good. Motor activity appropriate. Speech within normal limits. Affect congruent, mood anxious and depressed. Thoughts linear, logical, no signs of hallucinations or delusions. Client Response/Progress/Benefit: []Pt responded well to session, taking notes and contributing when prompted, reports ongoing difficulties in retaining information. Group discussed the different categories of coping skills which included distraction, emotional release, grounding, self-love, and thought challenging.? Pt participated in creating a coping skills ?menu? from the five categories of coping skills. Pt's coping skill menu included: calling a support, watching a movie, taking a shower, and continuing to work on giving herself credit. Appeared to benefit from increasing repertoire of healthy coping skills. Will continue IOP tx to increase repertoire and use of healthy coping skills, improve mood stability and reduce anxiety, and prevent decompensation. Narrative Note: []
--- NOTE | 2024-02-05 15:47 | BH.MDN ---
Multi-Disciplinary Note Note 30-min Individual: Time Started:: 08:50 Date: 02/05/24 Purpose of session/treatment goals addressed:: To address current sx and stressors pt reported wanting to process upon IOP tx arrival. Eye Contact:: Good (tearful ) Motor Activity:: Appropriate Appearance:: Casual Speech:: Appropriate Mood:: Anxious Affect:: Congruent Thoughts:: Linear, Logical and No evidence of hallucinations/delusions noted Staff Interventions:: thought challenging, motivational interviewing, CBT techniques, strengths perspective and goal setting Client Response:: Client arrived to IOP groups for the day tearful and requested to meet with this therapist. Initially tearful and shared ?I feel like I have no positives?, expressing concern that she is not making progress and fear she will be unable to stabilize enough to successfully function independently. Expressed not being able to ?do anything? and upon further inquiry explained beliefs she needs to be working/providing financially for her daughter, addressing uncertainty about her marriage, and taking on more of the caregiving responsibilities. With support, client did well to challenge unrealistic [id number] and desire to monson the treatment process. Recognized that it would be unhealthy to push herself to do these things before stabilizing her anxiety and improving self-confidence. Able to recognize the importance of building upon small daily areas of progress to work toward her goals. Pt identified not feeling comfortable in her own skin presently and shared this is related to not having clothes she likes, as well as not liking her haircut. Discussed strategies to begin utilizing behavior activation skills to address this area. Pt agreeable to challenge herself to get reading in the morning, by picking out an outfit she likes and doing her hair, on the days she is scheduled for IOP tx. Pt additionally identified a goal to go to another area of [facility] on her own to get an item while shopping with her mother. Expressed this would improve confidence in independently completing activities. Risks/Concerns:: Client denies any suicidal ideations, plan, or intent as of 02/05/24. Client is future oriented and her daughter is a protective factor. Progress Toward Goals/Plan:: Progress variable. Pt continues to report feeling she has no positives, is not making progress, and is unable to retain information from groups; however, upon challenging this with her she was able to identify small areas of progress. Pt is spending more time independently with her daughter, reducing reassurance seeking, and continues to increase engagement in treatment. Pt's worries and ruminating thoughts, as well as negative self-talk and unrealistic expectations continue to stall further progress however. Recommended continued IOP tx to improve confidence, reduce distorted thinking, and prevent decompensation Time Stopped:: 09:25
--- NOTE | 2024-02-10 10:10 | BH.SGPN.GN ---
Behaviors/Verbalizations/Mental Status: []Pt alert and oriented, casually dressed and groomed. Eye contact good. Motor activity appropriate. Speech within normal limits. Affect congruent, mood anxious and depressed. Thoughts linear, logical, no signs of hallucinations or delusions. Client Response/Progress/Benefit: [] Pt active participant AEB pt providing input throughout group discussion. Pt attentive during psychoeducation about defense mechanisms. Showed engagement during small group discussions and helped group identify which defense mechanisms were maladaptive, adaptive, or ?somewhere in the horn.? Pt started to work with group on identifying how each defense mechanism can impact mental health and gave examples. Pt was quiet but engaged during small group discussion, reports connecting with anticipation and sublimation. ?Seemed to benefit from gaining awareness about the different defense mechanisms. Pt to continue IOP tx to prevent decompensation, improve daily functioning, and increase mood stability. ? Narrative Note: []
--- NOTE | 2024-02-10 12:09 | PCM.BH.PN ---
Progress Note Progress Note: History of Present Illness/Interim History: The patient is a 28-year-old female with a history of bipolar 1 disorder and severe anxiety who is seen in follow-up at the [facility]. I last saw the patient 3 weeks ago and at that time no medication changes were made as they were recently changed. The patient states that she feels she has improved somewhat in the last 3 weeks but remains severely anxious and spends a lot of her time crying according to the patient. She feels that she is unable to retain anything from the group although she does feel she learns things in the present moment and takes notes that she can go over later. She still has trouble functioning at home at times and worries constantly about her future and financial stress and future of her child and if her child will see the child's father. The patient is living here and the father is in the and is in another state. The patient has been able to go shopping on her own and come to the IOP alone which is an improvement for her. The patient states that her outpatient provider added Klonopin and this has somewhat decreased her anxiety. She denies passive thoughts of , suicidal ideation, plan for suicide, homicidal ideation, hallucinations or delusions. On discussion with the patient about medication compliance the patient admits that she has not been taking her Latuda with food. She has been taking it at night with her bedtime medications after several hours after eating dinner. Current Psychiatric Medications: [] Latuda 60 mg p.o. daily (not taking it with food); Trintellix 10 mg p.o. daily (x 1 month); trazodone 50 mg p.o. nightly; Klonopin 0.5 mg p.o. twice daily (x 2-1/2 weeks). Mental Status Examination: [] The patient is a 28-year-old female who appears normal for stated age and is casually dressed and groomed with good hygiene. She is ambulatory with a normal gait and has no psychomotor agitation or retardation. Eye contact is good and patient is not staring without blinking now. Speech is normal rate and rhythm and fluent with no pressure. Mood is anxious and depressed. Affect is constricted and almost tearful at times. Thought process is goal-directed and organized. Thought content: There is evidence of the patient worrying and thinking negative thoughts about herself and her future on a regular basis. There is no evidence of passive thoughts of , suicidal ideation, plan for suicide, homicidal ideation, hallucinations or delusions. Reality testing is intact. Intelligence is average or above average. Judgment is intact. Insight is limited but some present. Impulsivity is high. Diagnoses: [] 1. Bipolar 1 disorder, most recent episode depressed, severe without psychosis (F31.4) 2. Generalized anxiety disorder 3. Primary support issues Plan: [] The patient will continue the IOP at [facility] as the structure, support, education and group therapy will hopefully prevent worsening of the patient's symptoms. She felt safe during the interview and if it anytime she does not feel safe she will let us know or go to the emergency room. No medication changes were made today except that a long discussion was had about the necessity of taking Latuda with food at dinner at least 350 jose of food or it will not be absorbed. The patient agrees to take her Latuda at dinnertime in the evening with food. She understands that she may experience some side effects if the Latuda is absorbed when she starts taking it with food. She will continue to follow-up with her outpatient providers and I will see the patient in follow-up in 2 weeks.
--- NOTE | 2024-02-10 15:04 | BH.MDN ---
Multi-Disciplinary Note Note 60-min Individual: Time Started:: 09:08 Date: 02/10/24 Eye Contact:: Good (tearful) Motor Activity:: Appropriate Appearance:: Casual Speech:: Appropriate Mood:: Anxious and Depressed Affect:: Congruent Thoughts:: Linear, Logical and No evidence of hallucinations/delusions noted Staff Interventions:: thought challenging, motivational interviewing, psychoeducation on: (behavior activation, inappropriate guilt), CBT techniques, strengths perspective and goal setting Client Response:: Pt receptive of session and actively engaged throughout. Reports ongoing depressive sx, noting continued difficulties completing daily tasks like showering due to lack of motivation. Pt reports ?all I want ot do is sleep all day? and shared limited desire to leave the house or get ready for the day. After further discussion, pt did however report driving by herself to the pharmacy, as well as taking her daughter to the library. Reports getting dressed and ready for the day on two occasions since last session, making her daughter dinner without seeking reassurance from her mother, as well as calling a daycare to inquire about pricing. Pt struggles to identify these as accomplishments and often disqualifies her progress, noting that she ?should? be able to do these things without problem. Receptive of challenging her expectations of self and use of unfair comparisons to others who are not struggling with their mental health or the external stressors she is navigating. Pt able to identify she has made progress since admission, even if not at the rate she is expecting herself to. Continues to fixate on future focused stressors and her marriage. Disclosed that that her went out drinking with friends over the weekend and called pt while intoxicated. Shared that he made statements about wanting to kill himself and blamed pt for his own mental health struggles. Denied this the next day and refused to further discuss resulting in increased anxiety and pt feeling responsible for his wellbeing. Able to identify that he has supports living with him and that he is responsible for his own behaviors and means of coping. Spent a large portion of time discussing inappropriate guilt and why boundaries sometimes receive pushback by others. Psychoeducation on behavior activation?s role in breaking the cycle of depression and anxiety, as well as reducing unhealthy overthinking by engaging her in grounding activities. Pt set goals to wear something other than leggings 2 days out of the next week, leave the house 2 days, as well as discuss finances with her father to aid in making a decision on her marriage. Risks/Concerns:: None noted. Pt denies suicidal ideation, plan, or intent as of this date 02/10/24. Progress Toward Goals/Plan:: Progress remains variable. Pt has made gains in several areas including improved engagement with her daughter, increased engagement in activities of daily living, successfully completing various activities independently, and beginning to advocate for her needs within her marriage. Pt reports continuing to make progress on goal to complete a morning hygiene routine, though is variable in consistency of doing this. Pt however, struggles with significant negative core beliefs, self-deprecation, and is focused on her unhealthy marriage which is impacting her mood and reinforcing distorted thoughts about herself. Pt will remain in IOP tx to continue to stabilize mood, promote adaptive coping skill application, improve boundaries, and prevent decompensation. Pt is also encouraged to increase healthy social supports and daily exposure goals. Time Stopped:: 10:18
--- NOTE | 2024-02-10 15:32 | BH.MTP_ITS ---
Treatment Plan Review Demographics Date of Admission:: 01/18/24 Date of Treatment Plan Review:: 02/10/24 Admitting Diagnoses:: 1. Bipolar 1 disorder, most recent episode depressed, severe without psychosis (F31.4) 2. Generalized anxiety disorder Current Diagnoses:: 1. Bipolar 1 disorder, most recent episode depressed, severe without psychosis (F31.4) 2. Generalized anxiety disorder Patient Status Patient's Response to Treatment:: Pt has responded well to session AEB consistently attending IOP and engaging in both individual and group therapy sessions. Pt consistently completes homework provided from individual counseling. Pt contributes at times during group discussions, takes notes, appears to listen to others, and engages in group activities. Pt continues to report difficulties with retaining information due to the extent of her anxiety and racing thoughts. Status of Current Problems and Symptoms: Pt is currently struggling most with her andxiety and depressive symptoms. Pt reports she continues to feel low, has negative self-talk, and is still struggling to complete activities of daily living. Pt also working on developing healthier routines and engage in independent activities as her anxiety prevents pt from decision making and leads to significant reassurance seeking behaviors. Pt reports this week she has been especially hard on herself for her current marital issues and returning to the marriage despite knowing it was unhealthy, which has led to a spiral of negative self-talk and poor self-esteem. Pt reports feeling overwhelmed and guilty that her is struggling with his own mental health issues preventing pt to feel she is allowed to engage in self-care. Progress Problem #1: Problem Name:: Anxiety, avoidance, isolation Status of Goals:: ongoing work encouraged. Pt is able to identify several triggers for anxiety and panic. She is also improving somewhat in her ability to recognize healthy calming skills like breathing, grounding, taking breaks, and healthy distractions. Pt could benefit from reinforcement to demonstrate consistency of skill use. Pt is making strides with small exposure goals which is progress but ay also temporarily increase anxiety until building increased confidence in areas of exposure. As a result of increased acute stress and pt struggling with consistency of skill application, DSM-5 scores for anxiety have maintained since admission. Team Recommendations:: Team recommends continued work on current goals and objectives to reinforce skills Problem #2: Problem Name:: Depression, irritability, mood stability Status of Goals:: Obj 1 ? continued focus encouraged. Client can identify healthy coping skills like opposite action, behavior activation skills, self- care, positive self-talk, and changing environment to manage depression and irritability sx and triggers. Per DSM 5 client's depression has not reduced since admission though. This may be due to pt disqualifying any progress or accomplishments she makes, continued lack of motivation, and significant negative self-talk. However, irritability has decreased by 25%. Obj 2 ? continued progress needed. Client can identify some distorted thought patterns but struggles with independently reframing or practicing affirmations. Team Recommendations:: Team recommends continued work on current goals and objectives to reinforce skills. Will focus on helping client identify ways to start improving self-care and consistency of skill implementation.
--- NOTE | 2024-02-11 09:01 | BH.SGPN.GN ---
Behaviors/Verbalizations/Mental Status: [] Client alert and oriented, casual appearance. Eye contact good. Motor activity appropriate. Speech within normal limits. Affect congruent, mood anxious. Thoughts linear, logical, no signs of hallucinations or delusions. Reviewed client?s symptom tracker, no risk for suicidal ideation, plan, or intent. Client Response/Progress/Benefit: [] Client responded well to session AEB listening to others and sharing thoughts/feelings. Client stated mental positive driving to IOP today. Client struggled with identifying a second positive but with assistance from therapist client noted that she did write in her journal yesterday in which she identified 2 wins. Client reported she is struggling a little bit more today because she found out that her is planning to come home this weekend which is something that she was not aware of and she does not want to face figuring out what to do about the relationship and marriage. Appeared to benefit from support from peers. Will continue IOP tx to continue meal as a healthy coping skills, improve ability to give self credit for progress, and prevent decompensation. Narrative Note: []
--- NOTE | 2024-02-11 10:10 | BH.SGPN.GN ---
Behaviors/Verbalizations/Mental Status: []Pt alert and oriented, neatly dressed and groomed. Eye contact good. Motor activity appropriate. Speech within normal limits. Affect congruent, mood anxious. Thoughts linear, logical, no signs of hallucinations or delusions. Client Response/Progress/Benefit: [] Pt took notes and contributed occasionally. Attentive during psychoeducation on growth mindset. Participated during the activity. Interactive group discussion on growth mindset in which group verbalized their current fixed mindsets and how they affect their mental health. Pt shared common fixed mindset thoughts they have which included I'm never getting better; I?m not good enough; this is too hard?. These thoughts lead to feeling and staying stuck, not letting supports help, and getting defensive with feedback. Pt stated they have personally struggled all or nothing thinking which keeps pt from giving herself any credit. Pt benefited from increased awareness of growth mindset and fixed thoughts and how fixed thoughts impact their mental health. Will continue IOP tx to prevent decompensation, improve daily functioning, and increase self-confidence. Narrative Note: []
--- NOTE | 2024-02-11 11:10 | BH.SGPN.GN ---
Behaviors/Verbalizations/Mental Status: []Pt alert and oriented, casually dressed and groomed. Eye contact good. Motor activity appropriate. Speech within normal limits. Affect congruent, mood anxious and depressed. Thoughts linear, logical, no signs of hallucinations or delusions. Client Response/Progress/Benefit: [] Pt was an active participant during activity and discussion AEB providing some input when prompted, connecting with peers, as well as taking notes throughout. Pt did well to remain attentive and participate as group worked on identifying characteristics and benefits of adopting a growth mindset. Worked with fellow participants in reframing the example fixed thoughts into growth mindset thoughts. Pt worked on changing own fixed thought of I'm never going to get better to a more growth mindset thought of If I keep working on it, over time things can improve. Receptive of discussing benefits of growth mindset and brainstorming strategies for prompting growth-mindset. Pt appeared to benefit from working in small groups to challenge own thoughts and help peers. Pt will continue IOP tx to improve mood stability, reduce distorted thoughts, and improve daily functioning. Narrative Note: []
--- NOTE | 2024-02-12 09:00 | BH.SGPN.GN ---
Behaviors/Verbalizations/Mental Status: [Patient was alert and oriented, appropriately dressed and groomed. Eye contact was good, motor activity normal, speech within normal limits. Affect congruent, mood anxious. Thoughts linear, logical, no signs of hallucinations or delusions. Reviewed Patients symptom tracker and the patient reports depressed mood, anxiety/panic attacks, agitation/irritability/anger, self-harm urges, and thoughts/risk of suicide within normal limits.] Client Response/Progress/Benefit: [Patient was engaged and open to the discussion. Patient reported her mood to be ?anxious?. Patients stressor is that she was given a 2 day notice yesterday that her will be in [place], and she doesn?t want to see him. Patients first win is that she drove an hour to get to group today. Patients second win is that she has been trying to be more positive. Patient was interactive and respectful with other group members about their mental wins and stressors. Patient benefited from the discussion by listening to feedback and giving input on her peer?s stressors and mental health wins. Patient will continue with IOP treatment to help develop healthy skills, promote mood stability, and improve distress tolerance. ] Narrative Note: []
--- NOTE | 2024-02-12 10:05 | BH.SGPN.GN ---
Behaviors/Verbalizations/Mental Status: [] Eye contact is good. Motor activity is appropriate. Appearance is casual. Speech is Appropriate. Mood is anxious. Affect is congruent. Thoughts are linear and logical. No evidence of psychosis. Client Response/Progress/Benefit: [] Pt receptive of session, actively engaged throughout AEB taking notes, providing input, and contributing in small group discussion. Appeared to connect with group topic of automatic thoughts and cognitive distortions and the impact of thought patterns on mental health, coping behaviors, and relationships. This particular group is very heavy on psychoeducation however pt appeared to connect with distortions and how they can impact functioning. Pt appeared to benefit from gaining insight on distorted thinking patterns and how this impacts overall mental health. Will continue IOP to prevent decompensation, stabilize anxiety, improve functioning, and increase healthy coping skills. Narrative Note: []
--- NOTE | 2024-02-12 11:10 | BH.SGPN.GN ---
Behaviors/Verbalizations/Mental Status: []Eye contact is fair. Motor activity is appropriate. Appearance is casual. Speech is WNL. Mood is anxious. Affect is congruent. Thoughts are linear and logical. No evidence of psychosis. Client Response/Progress/Benefit: []Pt did well to remain an engaged participant AEB providing input during small group discussion and engaging in activity. Activity involved working with peers to answer questions related to psychoeducation on cognitive distortions and practicing reframing distorted thoughts. Pt collaborated with the group to determine the answers. Able to identify the impact distortions has on pt?s mental health. Connected with disqualifying the positive as most harmful distortion to their mental health. Benefited from rehearsing ways to challenge/reframe cognitive distortions and by gaining increased insight into examples/definitions of 10 most common cognitive distortions. Will continue IOP to improve decision making, decrease anxious avoidance, and prevent decompensation.
--- NOTE | 2024-02-15 10:15 | BH.SGPN.GN ---
Behaviors/Verbalizations/Mental Status: [] Eye contact is good. Motor activity is appropriate. Appearance is casual. Speech is Appropriate. Mood is anxious. Affect is congruent. Thoughts are linear and logical. No evidence of psychosis. Client Response/Progress/Benefit: [] Engaged and participated at times group discussions. Attentive during psychoeducation and participated in group activity. Group discussed what contributes to a person?s perspective and how perspective can positively or negatively impact mental health treatment. Participated in group discussion on things that can interfere with perspective which group identified as; mood, physical state, past experiences, relationships, anger, current stressors, finances, and several others. Pt appeared to benefit from increasing awareness of different perspectives and how they can affect mental health. Pt will continue IOP treatment to prevent decompensation, decrease isolation and reassurance seeking, increase healthy coping,and improve functioning. Narrative Note: []
--- NOTE | 2024-02-15 11:15 | BH.SGPN.GN ---
Behaviors/Verbalizations/Mental Status: []Pt alert and oriented, casually dressed and groomed. Eye contact good. Motor activity appropriate. Speech within normal limits. Affect congruent, mood depressed and anxious. Thoughts linear, logical, no signs of hallucinations or delusions. Client Response/Progress/Benefit: []Pt was attentive and contributed to group discussion. Pt worked with group to identify strategies that can help with challenging negative perspective. Pt completed strengths exploration worksheet, identifying love, honesty, and empathy as personal strengths. Pt able to acknowledge how these strengths are helping pt and can continue to help pt in mental health journey. Pt identified wanting to work on applying opposite action as a means of challenging her perspective. Benefited from identifying personal strengths and strategies for enhancing use of identified strengths. Pt will continue IOP tx to work on application of distress tolerance and behavior activation skills, improve mood stability, and prevent decompensation. Narrative Note: []
--- NOTE | 2024-02-15 21:58 | BH.MDN ---
Multi-Disciplinary Note Note 60-min Individual: Time Started:: 10:07 Date: 02/15/24 Purpose of session/treatment goals addressed:: To address tx plan goal #1 obj #1 and #2. Eye Contact:: Good (tearful) Appearance:: Casual Speech:: Appropriate and Pressured Mood:: Anxious and Dysthymic Affect:: Congruent Thoughts:: Linear, Logical and No evidence of hallucinations/delusions noted Staff Interventions:: thought challenging, motivational interviewing (discrepancy building), strengths perspective and goal setting Client Response:: Pt receptive of session, openly discussed current sx and stressors. Discussed adjusting to her visiting for the week. Shared that she is nervous as he just arrived yesterday and she is unsure of how the visit will go. Pt continues to report a desire to end the marriage due to increased conflict, pt not wanting to move out of state, and feeling her has not been understanding of her mental health. Disclosed he has made negative comments about pt needing support and suggested that she is incapable of supporting herself and her daughter independently. Noted that since he arrived he has been more positive and supportive; however, she remains anxious. Pt?s daughter is currently with her which she is anxious about, as she fears he will not know how to appropriately parent due to the limited amount of time spent around her. Did well to sit with the uncomfortable and identify evidence that he can be an effective parent despite ongoing marital conflict, Reports wanting more time to decide what she would like to do regarding the marriage moving forward. Discussed wanting to continue to improve her independence. Expresses a desire to feel more comfortable with her completing parenting duties as well. Pt identified goal to take 20 or mor minutes away from her daughter and to go do something for herself at least once while he is visiting. Risks/Concerns:: Client denies any suicidal ideations, plan, or intent as of 02/15/24. Client is future oriented and her daughter is a protective factor. Progress Toward Goals/Plan:: Progress noted. Pt has displayed efforts in completing morning hygiene routine by getting ready each morning. Reports reduced reassurance seeking and not calling her parents as often for advice. Shared improved clarity of her own needs and boundaries regarding her marriage which has increased confidence. Continues to struggle with negative self-talk, unrealistic expectations, and difficulties managing her emotions. Pt?s confusion about her relationship continues to be a major stressor and barrier to focusing on her own mental health needs. Recommended continued IOP tx to improve mood stability, reduce anxiety, and prevent decompensation. Time Stopped:: 10:00
--- NOTE | 2024-02-18 09:00 | BH.SGPN.GN ---
Behaviors/Verbalizations/Mental Status: [] Pt alert and oriented, neatly dressed and groomed. Eye contact good. Motor activity appropriate. Speech within normal limits. Affect congruent-tearful. mood sad and anxious. Thoughts linear, logical, no signs of hallucinations or delusions. Reviewed pt?s symptom tracker, no risk for suicidal ideation, plan, or intent 02/18/24 Client Response/Progress/Benefit: []Pt responded well to session, attentive and engaged. Pt reports feeling sad this morning because pt's just left to go back to [place]. Pt and her have a turbulent relationship and recently pt has questioned if she wants to stay . Today pt reports that she needs to get better so we can be a family again. Pt is currently living with her parents while she works on her mental health and gains independence. Pt receptive to thought challenging by therapist and peers. Pt appeared to benefit from feedback from a peer who was also a spouse. Pt reminded to give herself credit for progress she has already made and to combat the shoulds. Pt appeared to benefit from group feedback and support. Pt will continue IOP tx to prevent decompensation, combat distortions, and increase self-care practices. Narrative Note: []
--- NOTE | 2024-02-18 10:05 | BH.SGPN.GN ---
Behaviors/Verbalizations/Mental Status: [] Client alert and oriented, casually dressed and groomed. Eye contact good. Motor activity appropriate. Speech within normal limits. Affect flat, mood depressed. Thoughts linear, logical, no signs of hallucinations or delusions. Client Response/Progress/Benefit: [] Client responded well to session, contributing to discussion and engaged during the activity. Attentive during discussion on the quote. Group identified the benefits of change which included: increased confidence, improving mental health, and making progress. Worked with the group to identify barriers to change, which included: uncomfortable emotions such as anxiety and fear, lack of energy, worried about what others will think, and things out of our control. Client also reflected on past negative experiences can keep people from making changes. Client participated along with group in activity where they identified and discussed the emotions related to change. Client reported they related to all the emotions associated with change, especially fear. Benefited from increased awareness and understanding of emotions, benefits, and barriers related to change. Will continue IOP tx to continue to combat distortions and increase overall functioning. Narrative Note: []
--- NOTE | 2024-02-18 11:10 | BH.SGPN.GN ---
Behaviors/Verbalizations/Mental Status: [] Client alert and oriented, casually dressed and groomed. Eye contact good. Motor activity appropriate. Speech within normal limits. Affect flat, mood depressed. Thoughts linear, logical, no signs of hallucinations or delusions. Client Response/Progress/Benefit: [] Client responded well to session, attentive. Did well to process activity and work with group to relate the strategies used to overcome barriers in the activity to managing change in own life. Client identified a change they would like to make is be more positive. Client identified currently being in contemplative stage for this particular change. Client stated their goal is to say something positive each time she has a negative thought. Appeared to benefit from identifying a small goal to work towards. Client will continue IOP tx to prevent decompensation, decrease thoughts that lead to depressive symptoms and increase overall functioning. Narrative Note: [] Behaviors/Verbalizations/Mental Status: [] Client alert and oriented, casually dressed and groomed. Eye contact good. Motor activity appropriate. Speech within normal limits. Affect flat, mood depressed. Thoughts linear, logical, no signs of hallucinations or delusions. Client Response/Progress/Benefit: [] Client responded well to session, attentive. Did well to process activity and work with group to relate the strategies used to overcome barriers in the activity to managing change in own life. Client identified a change they would like to make is be more positive. Client identified currently being in contemplative stage for this particular change. Client stated their goal is to say something positive each time she has a negative thought. Appeared to benefit from identifying a small goal to work towards. Client will continue IOP tx to prevent decompensation, decrease thoughts that lead to depressive symptoms and increase overall functioning. Narrative Note: []
--- NOTE | 2024-02-19 09:00 | BH.SGPN.GN ---
Behaviors/Verbalizations/Mental Status: [Patient was alert and oriented, appropriately dressed and groomed. Eye contact was good, motor activity normal, speech within normal limits. Affect congruent, mood hopeful. Thoughts linear, logical, no signs of hallucinations or delusions. Reviewed Patients symptom tracker and the patient reports depressed mood, anxiety/panic attacks, agitation/irritability/anger, self-harm urges, and thoughts/risk of suicide within normal limits.] Client Response/Progress/Benefit: [Patient was engaged and open to the discussion. Patient reported her mood to be ?hopeful?. Patients first win is that she ?listened to Marli? and got up this morning and got ready instead of wearing leggings she wore jeans. Patients second win is that she showed up to group although she did not want to come. Patients stressor is that her left for [place], and she is conflicted on her feelings about their relationship. Patient was interactive and respectful with other group members about their mental wins and stressors. Patient benefited from the discussion by listening to feedback and giving input on her peer?s stressors and mental health wins. Patient will continue with IOP treatment to help develop healthy skills, promote mood stability, and improve distress tolerance. ] Narrative Note: []
--- NOTE | 2024-02-19 10:10 | BH.SGPN.GN ---
Behaviors/Verbalizations/Mental Status: []Pt alert and oriented, casually dressed and groomed. Eye contact fair. Motor activity appropriate. Speech within normal limits. Affect constricted, mood anxious. Thoughts linear, logical, no signs of hallucinations or delusions. Client Response/Progress/Benefit: []Pt participated in group discussion. Group worked together to identify benefits of healthy relationships which included improves mental health, encouragement, motivation, accountability, validation, connection, someone to share experiences with, and support during challenges. Group identified factors that lead to unhealthy relationships which included trauma, lack of communication, and substance use. Benefited from increased insight and awareness of benefits of healthy relationships and factors that contribute to unhealthy relationships. Will continue in IOP to increase confidence, improve decision making, decrease anxious avoidance, and prevent decompensation.
--- NOTE | 2024-02-19 11:10 | BH.SGPN.GN ---
Behaviors/Verbalizations/Mental Status: [] Client alert and oriented, casually dressed and groomed. Eye contact good. Motor activity appropriate. Speech within normal limits. Affect congruent, mood dysthymic, anxious. Thoughts linear, logical, no signs of hallucinations or delusions. Client Response/Progress/Benefit: [] Client responded well to session, engaged and taking notes throughout. Worked with group to connect components of the experiential activity with characteristics of healthy and unhealthy relationships. Attentive during psychoeducation about characteristics of healthy, unhealthy, and abusive relationships. Client stated that within the relationship with her , she does well with respect. Client reported she would like to continue to improve with communication in healthier ways as well as trust. Appeared to benefit from identifying current healthy relationship attributes and an area client wants to work on to build healthier relationships. Client to continue IOP to increase healthy coping skills, stabilize mood, and prevent decompensation. Narrative Note: []
== END 2024-02-21 23:59 ==
LOC: BHIOP 06:59
PROVIDERS: Referring Provider Psychiatry & Neurology Psychiatry; Visit Provider Psychiatry & Neurology Psychiatry
DX: F31.4 Bipolar disorder, current episode depressed, severe, without psychotic features (principal); F41.1 Generalized anxiety disorder
CPT/HCPCS: S9480; 90832; 90834; 90837; 90853

== ENCOUNTER 2024-02-22 07:14 | Outpatient (RCR) | payer OTHER, SELFPAY ==
[2024-02-22 00:50] VITALS: BP 128/88; PULSE 81
--- NOTE | 2024-02-22 09:00 | BH.SGPN.GN ---
Behaviors/Verbalizations/Mental Status: [ Patient was alert and oriented, appropriately dressed and groomed. Eye contact was good, motor activity normal, speech within normal limits. Affect congruent, mood content. Thoughts linear, logical, no signs of hallucinations or delusions. Reviewed Patients symptom tracker and the patient reports depressed mood, anxiety/panic attacks, agitation/irritability/anger, self-harm urges, and thoughts/risk of suicide within normal limits.] Client Response/Progress/Benefit: [Patient was engaged and open to the discussion. Patient reported her mood to be ?content?. Patients first win was that Easter dinner went well yesterday and that her daughter got to play with some of her cousins. Patient second win was she did not wake up as anxious today and says this could be because of her medicine is working or that she has been challenging herself more to be positive. Patients stressor is that she wants to have a timeline for when to expect to ?get better? but realizes that isn?t how life works. Patient was interactive and respectful with other group members about their mental wins and stressors. Patient benefited from the discussion by listening to feedback and giving input on her peer?s stressors and mental health wins. Patient will continue with IOP treatment to help develop healthy skills, promote mood stability, and improve distress tolerance. ] Narrative Note: []
--- NOTE | 2024-02-22 10:10 | BH.SGPN.GN ---
Behaviors/Verbalizations/Mental Status: []Pt alert and oriented, casually dressed and groomed. Eye contact good. Motor activity appropriate. Speech within normal limits. Affect congruent, mood euthymic, anxious. Thoughts linear, logical, no signs of hallucinations or delusions. Client Response/Progress/Benefit: [] Pt connected with topic of anxiety and participated throughout, providing input and taking notes. Participated throughout interactive discussion defining anxiety and identifying cognitive and physiological symptoms of anxiety. Group discussed how anxiety can prevent them from trying new things. Pt identified physical signs of anxiety as increased neck pain, headache, and sweating. Pt identified safety behaviors as reassurance seeking, over-thinking, and avoidance. Benefited from increased awareness and insight on anxiety and its impact. Pt will continue IOP tx to prevent decompensation, improve daily functioning, and increase indepenent self-care. Narrative Note: []
--- NOTE | 2024-02-22 11:15 | BH.SGPN.GN ---
Behaviors/Verbalizations/Mental Status: []Pt alert and oriented, neatly dressed and groomed. Eye contact good. Motor activity appropriate. Speech within normal limits. Affect congruent, mood content. Thoughts linear, logical, no signs of hallucinations or delusions. Client Response/Progress/Benefit: [] Pt was an active participant AEB pt providing input and listening attentively to peers. Attentive during psychoeducation on mindfulness coping skills and their impact on reducing anxiety and improving overall mental health wellness. Group was able to identify self-soothing and mind-based coping skills which included: 5-senses, meditation, deep breathing, journaling, thought challenging, and progressive muscle relaxation. Pt also participated with peers in practicing mindfulness skills in session. Pt would like to work on using deep breathing more regularly. Appeared to benefit from increasing repertoire of anxiety reduction skills. Pt will continue in [facility] tx to promote the use of healthy coping skills, improve daily functioning, and increase self-confidence. Narrative Note: []
--- NOTE | 2024-02-25 09:51 | BH.MDN_ITS ---
Multi-Disciplinary Note Note 60-min Individual: Time Started:: 09:00 Date: 02/25/24 Purpose of session/treatment goals addressed:: To address tx plan goal #1 obj #2 and goal #2 obj #2. Eye Contact:: Good (tearful) Motor Activity:: Appropriate Appearance:: Casual Speech:: Appropriate Mood:: Anxious and Dysthymic Affect:: Congruent Thoughts:: Linear, Logical, Racing and No evidence of hallucinations/delusions noted Client Response:: Pt receptive of session, openly discussed current sx and stressors. Discussed struggling with confusion and feeling emotionally tore since her visited for several days last week. Shared that this visit made pt miss him and rekindled feelings of wanting to remain . Reports some desire to return to [place] with him so the family would be back together; however, able to provide insight that this would not be the healthiest option for her mental wellness. Recognizes the importance of familial support in [place] as she continues to work on improving her mental health and reducing anxiety sx. Pt shared feelings of guilt that her is not able to see their daughter consistently due to living in different states, stating ?This is not how I pictured things would be. I thought we?d be a family and be together?. Receptive of challenging her perspective on what family can look like and expectations that they must be in the same location to be a healthy and happy family unit. Discussed ways they can continue to foster healthy relationships with one another while her is stationed in [place] for the next year. Reports her has expressed support of pt remaining in [place] while working on her mental health. Pt expressed fears she is not making enough progress and will not get to a point where she can independently do things. Worked with pt to challenge unrealistic expectations of progress and identify areas in which she has progressed since [facility] admission. Identified increased decision making, improving self-care, and reduced reassurance seeking when caregiving alone. Identified the importance of challenging herself to more actively engage in exposure therapy to improve independence and reduce anxiety long-term. Open to creating an exposure activity list rated from least to most anxiety provoking to begin improving consistent engagement in managing anxiety while completing daily activities. Pt identified goal to plan a meal and make the grocery list for this meal, then go to [facility] with her mother to purchase the items, and make the meal on her own. Risks/Concerns:: Client denies any suicidal ideations, plan, or intent as of 02/25/24. Client is future oriented and her daughter is a protective factor. Progress Toward Goals/Plan:: Progress remains variable. Pt continues to report feeling she is not making progress, this continues to be reinforced by her negative core beliefs, poor self-talk, and unrealistic expectations of herself. Pt is often resistant to applying skills, specifically challenging herself to step outside of her comfort zone and engage in consistent exposure goals, or practice positive affirmations stating that they feel too silly to say. Pt has however made progress in improved self-care, reduced safety behaviors, and continued increased engagement in the treatment environment. Pt?s confusion about her relationship continues to be a major stressor and barrier to focusing on her own mental health needs. Time Stopped:: 10:00
--- NOTE | 2024-02-25 10:05 | BH.SGPN.GN ---
Behaviors/Verbalizations/Mental Status: [] Client alert and oriented, neatly dressed and groomed. Eye contact good Motor activity appropriate. Speech within normal limits. Affect flat, mood depressed. Thoughts linear, logical, no signs of hallucinations or delusions Client Response/Progress/Benefit: [] Client was an active participant in group discussion and experiential activity. Attentive during psychoeducation on resilience. Participated in interactive discussion with peers on the definition of resilience and where it comes from. Group identified that resiliency can be impacted by; relationships. past experiences, trauma, and current mental health state. Group also worked together to identify the benefits of being resilient and how it is related to mental health. Group with client's input identified increased confidence, ability to make decisions, and adaptability of benefits of being resilient. Able to relate experiential activity of group juggle to topics of resilience. Worked well with peers in small group in which they identified factors that contribute to resilience. Benefited from increased awareness of resilience and the factors that contribute to building resilience. Will continue in IOP to prevent decompensation and further promote mood stability. Narrative Note: []
--- NOTE | 2024-02-25 11:05 | BH.SGPN.GN ---
Behaviors/Verbalizations/Mental Status: [] Client alert and oriented, neatly dressed and groomed. Eye contact good. Motor activity appropriate. Speech within normal limits. Affect flat, mood depressed. Thoughts linear, logical, no signs of hallucinations or delusions Client Response/Progress/Benefit: [] Client responded well to session AEB completing the resilience worksheet provided. Client participated in the discussion and worked cooperatively with group to identify strategies to enhance each of the components discussed. Client reports belief they already use resilience trait of ?making connections? Client shared they have a very close family to rely on. Client stated they would like to continue to develop resilience trait of ?maintaining a hopefully outlook? with discussing how they tend to be in a negative mindset. Client seemed to benefit from discussing strategies for improving personal resilience and identifying resilience traits Client already possesses. Will continue IOP tx reduce negative thinking patterns, and increase overall functioning. Narrative Note: []
--- NOTE | 2024-02-26 09:05 | BH.SGPN.GN ---
Behaviors/Verbalizations/Mental Status: [] Eye contact is good. Motor activity is appropriate. Appearance is casual. Speech is Appropriate. Mood is depressed. Affect is congruent. Thoughts are linear and logical. No evidence of psychosis. Reviewed daily check in sheet and no reports of suicidal ideations or intent. Client Response/Progress/Benefit: [] Pt participated when prompted. Attentive. Daily symptom tracker notes 2/5 for depression and anxiety as well as 4/5 for irritability. Able to identify mental health wins and healthy habits. States I was able to be present with family last night States that she went out to eat with mother and sister and was engaged, present, and not overly anxious. She also reports that I showered this morning and elaborated on how this has helped with her mental health this AM. She reports I'm still so worried about the future stating I can't stop thinking about it. Difficulty with acceptance and not overanalyzing her relationship. Limited insight that she can still worry about the future and have fun in the present. I'm not getting better. Group challenged her negative thoughts and cognitive distortions pointed out the changes and progress that they've seen. Benefited from group support, encouragment, and feedback. Will continue in IOP to prevent decompensation, stablize mood, and improve functioning. Narrative Note: []
--- NOTE | 2024-02-26 10:15 | BH.SGPN.GN ---
Behaviors/Verbalizations/Mental Status: [] Eye contact is good. Motor activity is appropriate. Appearance is casual. Speech is Appropriate. Mood is depressed and anxious. Affect is congruent. Thoughts are linear and logical. No evidence of psychosis. Client Response/Progress/Benefit: []Pt engaged participant AEB listening to others, engaging in activity, and providing feedback at times. Attentive during psychoeducation and provided insight into obstacles that impede mental wellness. Pt shared with group current mental health reality and desired mental health reality. Stated she would like to get to a place where she feels more confident in her ability to independently complete daily activities. Identified barriers to desired reality include: unrealistic expectations, negative self-talk, and poor follow-through. Benefited from taking look at current mental health state and obstacles for progress. Pt to continue IOP tx to improve mood stability, reduce over reliance on others, and prevent decompensation. Narrative Note: []
--- NOTE | 2024-02-26 11:15 | BH.SGPN.GN ---
Behaviors/Verbalizations/Mental Status: [] Eye contact is fair. Motor activity is appropriate. Appearance is casual. Speech is Appropriate. Mood is anxious. Affect is constricted. Thoughts are linear and logical. No evidence of psychosis Client Response/Progress/Benefit: [] Pt was an active participant in group discussion and activity. Worked with group to identify strategies to help overcome barriers and obstacles to desired reality. Group developed strategies for the common barriers. Identified personal barriers to desired reality and choose one obstacle to work. Pt stated she wants to work on barrier of negative self-talk by identifying and saying her positive affirmations daily. Pt seemed to benefit from increased repertoire of healthy coping skills/strategies to overcome common barriers to moving forward. Pt is to continue IOP to increase confidence, improve independence, and prevent decompensation.
--- NOTE | 2024-03-01 09:05 | BH.SGPN.GN ---
Behaviors/Verbalizations/Mental Status: [] Eye contact is poor. Motor activity is appropriate. Appearance is casual. Speech is Appropriate. Mood is euthymic. Affect is full. Thoughts are linear and logical. No evidence of psychosis. Reviewed daily check in sheet and no reports of suicidal ideations or intent. Client Response/Progress/Benefit: [] Pt participated when prompted. Attentive. Daily symptom tracker notes 3/5 for irritability and 1/5 for anxiety. Pt reports that she wasn't stressed out this morning which is unusual for her. Notes improved functioning and feeling hopeful. I'm smiling more too. She continues to ruminate on her future I just can't stop however believes that her ruminations are not impacting her daily functioning as much.Progress noted. Benefited from group support, encouragement, and feedback. Will continue in IOP to prevent decompensation, increase health skills, and improve functioning. Narrative Note: []
--- NOTE | 2024-03-01 10:10 | BH.SGPN.GN ---
Behaviors/Verbalizations/Mental Status: []Eye contact is good. Motor activity is appropriate. Appearance is casual. Speech is Appropriate. Mood is anxious. Affect is congruent. Thoughts are linear and logical. No evidence of psychosis. Client Response/Progress/Benefit: [] Pt was an engaged participant AEB listening attentively to others, taking notes, and providing feedback in small group discussions. Attentive during psychoeducation AEB by note taking and providing some input. Pt worked along with peers in small groups to define inappropriate guilt and appropriate guilt. Interactive discussion on examples of both inappropriate and appropriate guilt. Pt able to connect impact inappropriate guilt can have on MH. Pt gave an example of inappropriate guilt which pt described as ?fixating on the same thing.? Benefited from increased awareness of guilt and the differences between appropriate and inappropriate guilt. Will continue in IOP to promote mood stability, reduce anxious thought patterns, and increase self-confidence. Narrative Note: []
--- NOTE | 2024-03-02 09:00 | BH.SGPN.GN ---
Behaviors/Verbalizations/Mental Status: [Patient was alert and oriented, appropriately dressed and groomed. Eye contact was good, motor activity normal, speech within normal limits. Affect congruent, mood content. Thoughts linear, logical, no signs of hallucinations or delusions. Reviewed Patients symptom tracker and the patient reports moderate in agitation/irritability/anger, low in depressed mood and anxiety/panic attacks. Patient does not report symptoms of self-harm urges or thoughts/risk of suicide.] Client Response/Progress/Benefit: [Patient was engaged and open to the discussion. Patient reported her mood to be ?neutral?.?Patients first win was that she did not feel as anxious driving to group today. Patients second win was that she helped her mom clean the house last night which has been challenging for her. Patients stressor is that she is discharging next week but feels that she has not made a lot of progress and may not be ready. Patient was interactive and respectful with other group members about their mental wins and stressors. Patient benefited from the discussion by listening to feedback and giving input on her peer?s stressors and mental health wins. Patient will continue with IOP treatment to help develop healthy skills, promote mood stability, and improve distress tolerance. ?] Narrative Note: []
--- NOTE | 2024-03-02 10:05 | BH.SGPN.GN ---
Behaviors/Verbalizations/Mental Status: [] Eye contact is good. Motor activity is appropriate. Appearance is casual. Speech is Appropriate. Mood is anxious. Affect is congruent. Thoughts are linear and logical. No evidence of psychosis. Client Response/Progress/Benefit: [] Pt was actively engaged AEB taking notes throughout session. Connected with the topic of pitfalls and listened to group discussion on internal and external barriers that prevent from choosing a healthier path to mental wellness. Group worked together to identify examples of personal internal pitfalls and pt identified theirs as lack of communication, isolating, lack of self-care, and shutting down. Pt benefited from group as pt learned to better identify and normalize potential barriers to improving mental health symptoms. Pt also gained awareness of the difference between external triggers and self-sabotaging behaviors. Will continue in IOP to prevent decompensation, increase functioning, and increase healthy coping skills. Narrative Note: []
--- NOTE | 2024-03-02 11:10 | BH.SGPN.GN ---
Behaviors/Verbalizations/Mental Status: []Pt alert and oriented, casually dressed and groomed. Eye contact good. Motor activity appropriate. Speech within normal limits. Affect congruent, mood anxious and content. Thoughts linear, logical, no signs of hallucinations or delusions. Client Response/Progress/Benefit: [] Pt receptive of session, engaged throughout AEB actively contributing and listening to discussion, as well as taking notes. Pt participated in the experiential activity and processed with group how their emotions, perspective, and reactions positively and negatively impacted the outcome. Pt identified pitfalls they struggle with and shared wanting to work on pitfall of isolating by continuing to work on her exposure goals with her individual counselor. Benefited from identifying personal pitfalls and strategies to overcome these pitfalls. Will continue IOP tx to promote gains, reduce negative self-talk, and increase self-confidence. Narrative Note: []
--- NOTE | 2024-03-04 09:43 | BH.MDN ---
Multi-Disciplinary Note Note 60-min Individual: Time Started:: 09:06 Date: 03/04/24 Purpose of session/treatment goals addressed:: To address tx plan goal #1 obj #1 and goal #2 obj #2. Eye Contact:: Good Motor Activity:: Appropriate Appearance:: Neat and Casual Speech:: Appropriate Mood:: Anxious and Dysthymic Affect:: Congruent Thoughts:: Linear, Logical and No evidence of hallucinations/delusions noted Staff Interventions:: thought challenging, motivational interviewing, CBT techniques, discharge planning, strengths perspective and goal setting Client Response:: Pt receptive of session, actively engaged throughout. Reports feeling more positive about her marriage, but is now struggling with increased guilt about she and her daughter being in [place] while her is stationed in [place]. Pt reports that she and her have had several conversations since his visit regarding the matter and he does not feel she is ready to move back to [place] at this time. Shared wanting pt to have a prolonged period of stability and continue to gain more independence before moving to a state where he is her only support. Pt reports feeling sad about this but acknowledges that he is coming from a place of love and concern. Pt discussed plans to begin making more concrete steps towards remaining in [place] for the next year until her is stationed in [facility].. Identified the need to begin looking into part-time employment and childcare options, as she believes this would allow her to have more exposure and independence as well as provide socialization to her daughter. Reports not knowing what type of job would be best for her and feeling confused as to where she should start. Receptive of discussion on beginning to look online at different positions to gain an idea of what might be a good fit while working on updating her resume. Goal to complete resume over the weekend. Went on to share she has taken steps to challenge her internalized mental health stigma and reached out to a friend. Shared they were able to spend time hanging out at pt?s mother?s house and have plans to go to her friend?s home next . Shared the experience was positive and encouraged pt to reach out to supports more often rather than isolating out of fear that she will be judged. Risks/Concerns:: Client denies any suicidal ideations, plan, or intent as of 03/04/24. Client is future oriented and her daughter is a protective factor. Progress Toward Goals/Plan:: Some progress noted. Pt reports improve positivity, improving sense of self-confidence, and more hope than several weeks ago. She is taking more steps to begin working more actively on exposure goals and is improving upon her independent decision making in areas of self-care. Pt reports spending time with a friend which is a significant step. Continuing to work on independently making meals and going places with her daughter alone, though continues to struggle with self-doubt in these areas. Continues to struggle with unrealistic expectations of herself, reassurance seeking, poor self-esteem, and negative self-talk. Recommended continued IOP tx to maintain gains, promote further improved mood stability, and prevent decompensation. Time Stopped:: 10:02
--- NOTE | 2024-03-04 10:10 | BH.SGPN.GN ---
Behaviors/Verbalizations/Mental Status: [] Eye contact is good. Motor activity is appropriate. Appearance is casual. Speech is Appropriate. Mood is anxious. Affect is congruent. Thoughts are linear and logical. No evidence of psychosis Client Response/Progress/Benefit: [] Pt responded well to session AEB contributing to small group discussion, taking notes, and listening attentively to others. Group defined anger and discussed the benefits of managed anger and anger as a secondary emotion. Pt shared perspective on personal benefits of anger as advocating for self. Pt completed worksheet on anger triggers and personal warning signs of anger. Pt identified a common trigger as daughter crying and screaming. Appeared to benefit from increased knowledge of the anger cycle as well as personal triggers. Will continue IOP to prevent decompensation, increase healthy coping skills, and improve functioning. Narrative Note: []
--- NOTE | 2024-03-04 11:15 | BH.SGPN.GN ---
Behaviors/Verbalizations/Mental Status: []Client alert and oriented, casually dressed and groomed. Eye contact good. Motor activity appropriate. Speech within normal limits. Affect congruent, mood anxious. Thoughts linear, logical, no signs of hallucinations or delusions. Client Response/Progress/Benefit: []Pt was engaged throughout AEB contributing to group discussion and self-reflection. Group finished processing cues to anger worksheet. Pt contributed as group brainstormed healthy coping skills for better managing anger which included: music, walking/exercise, taking a break, grounding tools, reflection, and journaling. Pt identified personal anger cycle and was able to make connections on how own thoughts/evaluations of a situation can worsen anger feelings. Stated will work on taking a breath and walking away rather than forcing herself to remain in a triggering environment. Pt appeared to benefit from identifying different techniques to manage anger as well as gaining awareness of potential consequences of unmanaged anger. Pt to continue IOP to promote use of healthy coping skills, challenge distortions, and prevent decompensation. Narrative Note: []
--- NOTE | 2024-03-07 09:00 | BH.SGPN.GN ---
Behaviors/Verbalizations/Mental Status: [Patient was alert and oriented, appropriately dressed and groomed. Eye contact was good, motor activity normal, speech within normal limits. Affect congruent, mood anxious. Thoughts linear, logical, no signs of hallucinations or delusions. Reviewed Patients symptom tracker and the patient reports moderate in agitation/irritability/anger, low/moderate in depressed mood, and low in anxiety/panic attacks. Patient does not report symptoms of self-harm urges, or thoughts/risk of suicide.] Client Response/Progress/Benefit: [Patient was engaged and open to the discussion. Patient reported her mood to be ?anxious?. Patients first win is that she spent all day outside with her daughter yesterday. Patient could not identify a second win. Patients stressor was that she is moving back to [place] in 2.5 weeks and is afraid of ?regressing?. Patient was interactive and respectful with other group members about their mental wins and stressors. Patient benefited from the discussion by listening to feedback and giving input on her peer?s stressors and mental health wins. Patient will continue with IOP treatment to help develop healthy skills, promote mood stability, and improve distress tolerance. ] Narrative Note: []
--- NOTE | 2024-03-07 10:10 | BH.SGPN.GN ---
Behaviors/Verbalizations/Mental Status: []Client alert and oriented, casually dressed and groomed. Eye contact good. Motor activity appropriate. Speech within normal limits. Affect congruent, mood anxious and content. Thoughts linear, logical, no signs of hallucinations or delusions. Client Response/Progress/Benefit: []Pt engaged in session AEB listening attentively to others and providing input throughout. Pt engaged in activity, able to connect how it can be uncomfortable and difficult to accept when things are out of one?s own control. Pt worked with group to identify what things in life can be hard to accept. Group identified things hard to accept as: change, loss of relationship, mental health diagnosis, other?s behaviors, and finances. Pt identified struggling to accept financial obligations and a need to begin improving independent decision making. Seemed to benefit from increased awareness of importance of acceptance. Pt to continue IOP tx to promote mood stability, application of behavior activation and ERP skills, and prevent decompensation. Narrative Note: []
--- NOTE | 2024-03-07 11:10 | BH.SGPN.GN ---
Behaviors/Verbalizations/Mental Status: []Pt alert and oriented, casually dressed and groomed. Eye contact fair. Motor activity appropriate. Speech within normal limits. Affect congruent, mood euthymic. Thoughts linear, logical, no signs of hallucinations or delusions. Client Response/Progress/Benefit: []Pt responded well to session AEB taking notes and contributing to discussion throughout. Pt engaged as group continued discussion on acceptance and the mental health benefits of practicing acceptance. Pt and peers identified what makes acceptance challenging and pt completed a self-reflection exercise on what is hard to accept in pt's life. Pt identified what is hard to accept in her life and how makes things harder when resists acceptance. Client stated she is working on accepting that she has to move back to [place] since her parents have told her she has to move out. Client reported she realizes she has no choice, but to learn to accept this and identify how to adapt. Group identified strategies to increase acceptance and pt wrote down what strategy she wants to practice. Pt appeared to benefit from gaining insight and learning strategies to increase acceptance. Pt will continue IOP tx to increase consistent use of healthy coping skills, challenge negative thoughts, and prevent decompensation.
--- NOTE | 2024-03-08 09:05 | BH.SGPN.GN ---
Behaviors/Verbalizations/Mental Status: [] Eye contact is good. Motor activity is appropriate. Appearance is casual. Speech is Appropriate. Mood is euthymic. Affect is full. Thoughts are linear and logical. No evidence of psychosis. Reviewed daily check in sheet and no reports of suicidal ideations or intent. Client Response/Progress/Benefit: [] Active participant in group discussion. Attentive. Able to identify mental health wins and healthy habits. Emotion for today is ?excited and uncertain?. She reports that she continues to notice improvement in her mood and functioning. She has also decided that she is going to return to [place] to live with her and child. The plan is to leave in a few weeks. She is smiling and reports being excited about the move, however anxious. Doing well to reframe and challenge automatic thoughts and cognitive distortions. Progress noted per pt report. Benefited from group support, encouragement, and feedback. Will continue in IOP to prevent decompensation and improve functioning. Narrative Note: []
--- NOTE | 2024-03-08 09:57 | BH.MDN ---
Multi-Disciplinary Note Note 30-min Individual: Time Started:: 08:43 Date: 03/08/24 Purpose of session/treatment goals addressed:: To address a recent stressor impacting pt mental health. Additionally, discussed discharge and ongoing maintenance. Eye Contact:: Good (tearful at times) Motor Activity:: Appropriate Appearance:: Neat and Casual Speech:: Appropriate Mood:: Anxious Affect:: Congruent Thoughts:: Linear, Logical and No evidence of hallucinations/delusions noted Staff Interventions:: thought challenging, motivational interviewing, CBT techniques, discharge planning and strengths perspective Client Response:: Pt arrived to group today and requested to meet with this therapist. Reports that over the weekend her mother and father informed pt she would be moving back to [place] at the start of March. Pt explained that they have already made the arrangements and informed her . Pt reports feeling shocked and conflicted as she had been under the impression she would be remaining in [place] for at least another year. Much of the session was focused on allowing pt to process and address her concerns of ?what if I go there and fail?. Worked with pt to begin establishing a maintenance plan for managing her mental health sx in a new environment. Discussed reestablishing with providers she had previously been connected to when living in [place] in the past. Pt noted she has both psychiatry and therapy options she can return to. Additionally, reviewed the importance for establishing a healthy support network in her new environment, as pt reports this is what led to decompensating when previously living in [place]. Identified a friend and fellow parent living down the street from her [place] house she believes is healthy. Additionally identified plans to look into support groups for spouses and parents, as well as play date groups for her daughter. Identified wanting to establish a regular routine once moved as well. Shared this will include morning walks, making meals, and spending time outside of the house. Requested this therapist call once she is moved to aid in holding her accountable for re-establishing with outpatient providers. Risks/Concerns:: No risks or concerns noted as of this date, 03/08/24 Progress Toward Goals/Plan:: Progress noted. Pt receptive of completing on ongoing maintenance plan for her upcoming move and appears more confident in her ability to manage mental health sx as opposed to several weeks ago. Pt is more consistently completing self-care activities, independently caring for responsibilities, and expresses hopefulness for her future. Pt will benefit from continued work on challenging negative core beliefs, using exposure activities to improve independence and decrease associated anxiety, additionally recommended to maintain a consistent self-care routine. Pt is currently in the process of identifying providers in [place] for outpatient mental health counseling and medication management. Pt will d/c this 03/11/24, as she has completed tx goals and is moving out of state. Time Stopped:: 09:07
--- NOTE | 2024-03-08 10:15 | BH.SGPN.GN ---
Behaviors/Verbalizations/Mental Status: [] Eye contact is good. Motor activity is appropriate. Appearance is casual. Speech is Appropriate. Mood is euthymic. Affect is full. Thoughts are linear and logical. No evidence of psychosis. Client Response/Progress/Benefit: [] Pt was an active participant, AEB taking notes and providing input in group discussions and activities. Attentive during psychoeducation. Pt engaged during interactive discussion in which the group defined self-care and discussed its benefits. Group discussed benefits of self-care which included; better self-esteem, increased energy, feeling refreshed, increased motivation, reduce stress, and boost mood. Pt participated in small group where they worked to identify common self-care ?myths? or obstacles. Pt identified her lack of energy as an obstacle to self-care. Benefited from increased awareness of self-care, its benefits, and the consequences of not utilizing self-care strategies. Will continue IOP to maintain safety, increase healthy coping skills, and improve functioning. Narrative Note: []
--- NOTE | 2024-03-08 11:20 | BH.SGPN.GN ---
Behaviors/Verbalizations/Mental Status: []Pt alert and oriented, neatly dressed and groomed. Eye contact good. Motor activity appropriate. Speech within normal limits. Affect congruent, mood euthymic. Thoughts linear, logical, no signs of hallucinations or delusions. Client Response/Progress/Benefit: [] Pt engaged participant AEB completing self-assessment worksheet and providing input throughout discussion. Pt completed worksheet identifying current self-care practices and what self-care activities Pt wants to start using. Pt selected emotional self-care to begin practicing more consistently. Pt plans to do this by ?actually saying nice things to myself.? Appeared to benefit from completing the self-care evaluation and gaining insights into current self-care practices, as well as identifying areas in which Pt would like to improve upon. Pt will continue IOP tx to promote mood stability, reduce negative self-talk, and improve daily functioning. Narrative Note: []
--- NOTE | 2024-03-11 09:00 | BH.SGPN.GN ---
Behaviors/Verbalizations/Mental Status: []Pt alert and oriented, neatly dressed and groomed. Eye contact good. Motor activity appropriate. Speech within normal limits. Affect congruent, mood anxious. Thoughts linear, logical, no signs of hallucinations or delusions. Reviewed pt?s symptom tracker, no risk for suicidal ideation, plan, or intent 03/11/24 Client Response/Progress/Benefit: []Pt responded well to session, attentive and providing support to peers. Pt reports feeling anxious this morning as it is pt's last day of IOP tx and pt plans to move back to [place] in two weeks. Pt stated she is worried about slipping back, but pt gave herself credit and acknowledged progress in getting out more and taking on more responsibilities. Pt reported she has also been putting more work into her self-care and physical appearance and this has helped her mood. Pt will discharge from IOP tx as pt has accomplished her tx goals and received maximum benefit from IOP tx. Narrative Note: []
--- NOTE | 2024-03-11 10:15 | BH.SGPN.GN ---
Behaviors/Verbalizations/Mental Status: [] Eye contact is good. Motor activity is appropriate. Appearance is casual. Speech is Appropriate. Mood is euthymic. Affect is congruent. Thoughts are linear and logical. No evidence of psychosis. Client Response/Progress/Benefit: [] Client was an active participant during interactive group discussions. Attentive during psychoeducation on the six types of boundaries (physical, emotional, intellectual, sexual, time, and material) AEB note-taking and input. Along with peers contributed to interactive discussion on defining what a boundary is in mental health. Client along with peers identified challenges to setting boundaries which included; lack of self awareness, guilt, generational cycles, fear of disappointing the other person, etc. Client along with peers identified the benefits to setting boundaries such as increased identify of self, genuine relationships, self-care, and increased confidence. Group discussed the mental health benefits to establishing boundaries at work, school, and home. Client benefited from increased awareness and insight on the importance/benefit to setting health boundaries. Will continue in IOP to prevent decompensation, increase self worth, and stabilize depression. Narrative Note: []
--- NOTE | 2024-03-11 11:15 | BH.SGPN.GN ---
Behaviors/Verbalizations/Mental Status: [] Eye contact is good. Motor activity is appropriate. Appearance is casual. Speech is Appropriate. Mood is euthymic. Affect is congruent. Thoughts are linear and logical. No evidence of psychosis. Client Response/Progress/Benefit: [ ] Client responded well to session AEB listening attentively to peers, providing some input, as well as taking notes throughout. Client contributed more throughout psychoeducation on different boundary setting styles which is progress as she has struggled to share in prior groups. Participated in group discussion brainstorming various strategies for improving healthy boundary settings, as a group identified practicing in a mirror, starting with easy/small boundaries, and not overly apologizing as strategies to try. Seemed to benefit from increased awareness of how different boundary styles can impact mental health. Will continue IOP tx to increase positive thought patterns and prevent decompensation. Narrative Note: []
--- NOTE | 2024-03-11 15:03 | BH.DS ---
Discharge Summary Demographics Date of Admission:: 01/18/24 Discharge Date: 03/11/24 Presenting Problems at Admission:: The patient is a 28-year-old female with history of bipolar 1 disorder and severe anxiety who started the IOP program at [facility] September 23, 2023 but was overwhelmed and discontinued after 2 days. Patient is referred by her parents following an ER visit on 01/11/24 for thoughts of wanting ?to be ?. Pt reports worsening symptoms of anxiety and depression over the last year impacting her functioning and ability to care give for her daughter who is 2 years old. Pt is living between parent?s homes while her is deployed. Pt reports she cannot be alone due to severe anxiety and intrusive thoughts she will accidently miss something and her daughter will get hurt. She reports extreme worry about her marriage which is struggling and the possibility that should her could want her to go back to [place] where he is stationed and they have a home together. Pt endorses sadness, hopelessness, worthlessness, apathy, isolation, passive thoughts of noting I do not want to be alive but I am too afraid to do it. She denies any plan for suicide and denies suicidal ideation, homicidal ideation, hallucinations or delusions. Hx of bipolar disorder and pedro once in a while which and involves increased energy and grandiose mood along with impulsivity and increased spending of money. Last was about a month ago. She is unclear how often she has these episodes. She is a worrier by nature and has panic attacks on occasion. She denies OCD, eating disorder, history of self-harm, trauma or PTSD. She does have a history of medication noncompliance. Her sx are impacting social, occupational, financial, and caregiving responsibilities. Discharge Diagnoses:: 1. Bipolar 1 disorder, most recent episode depressed, severe without psychosis (F31.4) 2. Generalized anxiety disorder Reason for Discharge:: Pt has accomplished her tx goals AEB her reduced DSM-5 scores and improve mood. Pt no longer meets criteria for IOP level of care and will discharge to outpatient counseling and psychiatry in [place] upon her upcoming move the beginning of March. Treatment Progress During Treatment & Response: Pt has responded well to treatment as evidenced by Pt consistently attending IOP sessions and her reduction of DSM-5 scores since admission. Pt was always attentive and although initially struggled with retaining information, did well to improve in this area. She receptive to learning during group and individual sessions. Pt actively worked on improving her resistance to applied coping skills outside of [facility] and was able to do so by the end of treatment. She reports overall her mood is improved and she is functioning better than she was several months ago. Pt has additionally reduced her reliance on her parents to manage her anxiety and will be moving back with her and daughter next month. Pt?s overall symptom reduction is 59% since admission with anger decreasing by 50%, depression decreasing by 50%, and anxiety decreasing by 58%. Pt has increased self-confidence in her ability to independently manage stressors, emotions, and her distorted thinking patterns. Most importantly, Pt has gained self-compassion, confidence, and increased ability to practice self-care. Issues Still to be Addressed:: Negative thinking patterns, unrealistic expectations of self, consistent self-care, anxiety responses and triggers, boundary setting and assertive communication, and maintenance of healthy coping skills, reassurance seeking, self-doubt. Discharge Recommendations/Instructions:: Pt will continue with outpatient providers in [place] for medication management and outpatient mental health counseling. Pt was provided with several options in her area and will choose upon moving. Discharge Handout
== END 2024-03-11 12:04 | disposition home or self-care (01) ==
LOC: BHIOP 07:14
PROVIDERS: Referring Provider Psychiatry & Neurology Psychiatry; Visit Provider Psychiatry & Neurology Psychiatry
DX: F31.4 Bipolar disorder, current episode depressed, severe, without psychotic features (principal); F41.1 Generalized anxiety disorder
CPT/HCPCS: S9480; 90832; 90837; 90853